=== PATIENT | female | born 1960 | race African-American/Black ===

== ENCOUNTER 2016-06-06 00:03 | Inpatient (IN) | payer MEDICARE, MEDICAID ==
[~2016-06-06] VITALS: Ht 154.9 cm; Wt 87.1 kg
[~2016-06-06 00:03] MED LIST: AMLODIPINE BESY10 MG ORAL; ASPIR 8181 MG ORAL; BENAZEPRIL HCL40 MG ORAL; CIPROFLOXACIN500 M2 ORAL; COLACE100 MG ORAL; DIABETA5 MG ORAL; DYAZIDE1 CAP ORAL; FUROSEMIDE20 M1 ORAL; GLIMEPIRIDE4 MG ORAL; GLYXAMBI 25 MG1 EACH PO; HYDROCHLOROTHIA25 MG ORAL; IBUPROFEN200 MG ORAL; KEFLEX500 MG ORAL; LANTUS SOL100 UNIT/1 SUBQ; LIPITOR80 MG ORAL; METFORMIN HCL850 M1 ORAL; NITROFURANTOIN100 M2 ORAL; NORMODYNE200 MG ORAL; NOVOLIN 70/305 UNIT1 SUBQ; PERCOCET 5-3251 EACH ORAL; ZOFRAN ODT4 MG ORAL; jardiance PO
[2016-06-06] MEDS ORDERED: Ketorolac 30mg Inj IV ONE (00:30)
[2016-06-06] MEDS ORDERED: Aspirin Baby 81mg ORAL ONE (00:30)
--- NOTE | 2016-06-06 00:34 | Emergency Room Report ---
History of Present Illness General Chief Complaint: Chest Pain Source: Patient Present Illness HPI Is a 55-year-old female with history of diabetes and hypertension. Also history esophagitis. She presents with multiple complaints. She complaining of dizziness and lightheadedness for the whole day. Also with coughing congestion. Now with chest pain for last few hours. Denies any fever or chills. Pain is centrally located. No radiation. /10. No exertional component. Also with bilateral lower extremity burning sensation. Nothing made it better nothing made it worse. Allergies: Coded Allergies: MORPHINE (Verified Allergy, Unknown, 06/12/15) Patient History Past Medical History: see triage record, old chart reviewed, DM, HTN Past Surgical History: other Pertinent Family History: none Social History: Denies: smoking Now: No Immunizations: other Reviewed Nursing Documentation: PMH: Agreed, PSxH: Agreed Nursing Documentation-PMH Hx Cardiac Problems: Yes Hx Hypertension: Yes Hx Diabetes: Yes - type 2 Hx Cancer: Yes - BREAST Hx Gastrointestinal Problems: No Hx Neurological Problems: No Review of Systems Eye: Denies: blurred vision, eye pain ENT: Denies: ear pain, nose congestion, throat swelling Respiratory: Reports: cough, Denies: shortness of breath Cardiovascular: Reports: chest pain, Denies: palpitations Gastrointestinal: Denies: abdominal pain, diarrhea, nausea, vomiting Musculoskeletal: Denies: back pain, joint pain Skin: Denies: rash Neurological: Denies: headache, numbness Endocrine: Denies: increased thirst, increased urine Hematologic/Lymphatic: Denies: easy bruising All Other Systems: negative except mentioned in HPI Physical Exam Vital Signs Date Time Temp Pulse Resp B/P Pulse Ox O2 Delivery O2 Flow Rate FiO2 06/06/16 00:21 97.9 112 23 131/76 100 Room Air vitals with tachycardia Sp02 EP Interpretation: reviewed, normal General Appearance: well appearing, no apparent distress, alert Head: normocephalic, atraumatic Eyes: bilateral eye EOMI, bilateral eye PERRL ENT: hearing grossly normal, normal pharynx Neck: full range of motion, supple, no meningismus Respiratory: chest non-tender, lungs clear, normal breath sounds Cardiovascular #1: regular rate, rhythm, no murmur Gastrointestinal: normal bowel sounds, non tender, no mass, no organomegaly, no bruit, non-distended Musculoskeletal: back normal, gait/station normal, normal range of motion Neurologic: alert, oriented x3 Psychiatric: anxious Skin: warm/dry Medical Decision Making Diagnostic Impression: Primary Impression: Chest pain Qualified Codes: R07.9 - Chest pain, unspecified Additional Impressions: ACS (acute coronary syndrome) Dizziness Peripheral neuropathy Obesity (BMI 30-39.9) Acute renal insufficiency ER Course Patient presents with atypical chest pain. She has multiple risk factors for ACS. First set of troponin negative. Will admit for serial EKG and rule out. No evidence of PE, dissection to name a few. Her dizziness he anxiety related could be viral illness. No evidence of TIA or CVA. No evidence of neoplastic process. Lab Results Impression Labs with abnormal creatinine. EKG Diagnostic Results Rate: normal, tachycardiac Rhythm: NSR ST Segments: no acute changes Rhythm Strip Diag. Results EP Interpretation: yes Rate: 98 Rhythm: NSR, no PVC's, no ectopy Chest X-Ray Diagnostic Results EP Interpretation: Yes Findings: no consolidation, no effusion, no pneumothorax, no acute cardiopulmonary disease Number of Views: 1 CT/MRI/US Diagnostic Results CT/MRI/US Diagnostic Results : Imaging Test Ordered: ct head Impression neg per radiologist. Last Vital Signs Date Time Temp Pulse Resp B/P Pulse Ox O2 Delivery O2 Flow Rate FiO2 06/06/16 00:21 97.9 112 23 131/76 100 Room Air Status: improved Disposition: ADMITTED INPATIENT Condition: Serious BRIANA CRYSTAL M.D. Jun 06, 2016 00:34
[2016-06-06 00:51] LABS: APPEARANCE,URINE CLEAR; BASOPHILS % (AUTO) 2.1 % (0.0-2.0); EOSINOPHILS % (AUTO) 0.3 % (0.0-3.0); KETONES,URINE NEGATIVE (NEGATIVE); LEUKOCYTE ESTERASE ,URINE NEGATIVE (NEGATIVE); LYMPHOCYTES % (AUTO) 25.7 % (20.0-45.0); MEAN CORPUSCULAR HEMOGLOBIN 33.4 PG (27.0-31.0); MEAN CORPUSCULAR HGB CONC 36.1 G/DL (32.0-36.0); MEAN CORPUSCULAR VOLUME 92 FL (80-99); MEAN PLATELET VOLUME 8.3 FL (6.5-10.1); MONOCYTES % (AUTO) 6.4 % (1.0-10.0); NEUTROPHILS % (AUTO) 65.5 % (45.0-75.0); NITRITE,URINE NEGATIVE (NEGATIVE); PH,URINE 6.5 (4.5-8.0); PLATELET COUNT 221 K/UL (150-450); RED BLOOD COUNT 4.55 M/UL (4.20-5.40); RED CELL DISTRIBUTION WIDTH 11.7 % (11.6-14.8); UROBILINOGEN,URINE NORMAL MG/DL (0.0-1.0)
[2016-06-06 00:54] LABS: PROTEIN,URINE NEGATIVE (NEGATIVE)
[2016-06-06 01:07] LABS: TROPONIN I < 0.30 ng/mL (<=0.30)
[2016-06-06 01:10] LABS: ALBUMIN/GLOBULIN RATIO 1.8 (1.0-2.7); CREATININE 1.6 mg/dL (0.5-0.9); GLOMERULAR FILTRATION RATE 40.4 mL/min (>60); POTASSIUM 3.6 mEQ/L (3.4-4.9); TOTAL PROTEIN 7.9 g/dL (6.6-8.7)
[2016-06-06 01:20] LABS: CKMB 1.8 ng/mL (< 3.8)
[2016-06-06] MEDS ORDERED: AMLODIPINE BESY10 MG ORAL (01:27)
[2016-06-06] MEDS ORDERED: D3 DOTS2000 UNI1 PO (01:27)
[2016-06-06] MEDS ORDERED: FOLIC ACID1 MG ORAL (01:27)
[2016-06-06] MEDS ORDERED: FOLBIC RF TABL1 EACH PO (01:27)
[2016-06-06 02:25] VITALS: BP 105/58
[2016-06-06] MEDS ORDERED: AMARYL4 MG ORAL (03:25)
[2016-06-06] MEDS ORDERED: VITAMIN D400 INTLU ORAL (03:27)
[2016-06-06] MEDS ORDERED: TROKENDI XR100 MG PO (03:27)
[2016-06-06] MEDS ORDERED: FOLIC ACID0.4 MG ORAL (03:27)
[2016-06-06] MEDS ORDERED: B-121000 MCG PO (03:28)
[2016-06-06 04:00] VITALS: BP 130/90
[2016-06-06] MEDS ORDERED: Nitroglycerin Subl 0.4mg tab (Bottle Of 25) SL PRN (05:45)
[2016-06-06] MEDS: Heparin 5000 units/ml inj SUBQ SCH ×3 (06:30→21:53)
[2016-06-06] MEDS: NovoLOG Insulin Flexpen SUBQ SCH ×4 (06:31→21:51)
[2016-06-06] MEDS ORDERED: Norco 5mg/325mg tab ORAL PRN (06:45)
[2016-06-06 08:00] VITALS: BP 135/72
[2016-06-06] MEDS ORDERED: Triamterene/Hctz 37.5/25 cap ORAL SCH (09:00)
[2016-06-06 09:16] LABS: TROPONIN I < 0.30 ng/mL (<=0.30)
--- NOTE | 2016-06-06 10:23 | General Progress Note ---
Progress Note Progress Note [id number] full note dictated JANIS LIN Jun 06, 2016 10:23
[2016-06-06] MEDS: TROKENDI ORAL SCH (10:29)
[2016-06-06] MEDS: Aspirin Baby 81mg ORAL SCH (10:29)
[2016-06-06] MEDS: JARDIANCE 25 MG ORAL SCH (10:29)
[2016-06-06] MEDS: Glimepiride 4mg tab ORAL SCH ×2 (11:26→19:27)
[2016-06-06 12:00] VITALS: BP 128/72
--- NOTE | 2016-06-06 12:49 | Diagnostic Imaging Report ---
Indication: DIZZY Technique: Continuous helical CT scanning of the head was performed without intravenous contrast material. Axial and coronal 5 mm sections were generated. Radiation dose was minimized using automated exposure control Dose: Total Dose Length Product - DLP [address] Dose Index - CTDIvol(s) 70.38 mGy. Comparison: None Findings: The ventricular system is normal in size and configuration. There is no shift of midline structures. No abnormal extra-axial fluid collections are noted. There is no evidence of intracerebral bleeding. No other abnormal high or low density areas are noted within the brain. Impression: Normal CT scan of the head without contrast material. This agrees with the preliminary interpretation provided overnight by [facility] telerad[facility] service. The CT scanner at [facility] is accredited by the [employer] and the scans are performed using protocols designed to limit radiation exposure to as low as reasonably achievable to attain images of sufficient resolution adequate for diagnostic evaluation.
[2016-06-06 16:00] VITALS: BP 152/62
--- NOTE | 2016-06-06 17:09 | History & Physical ---
History and Physical History & Physicial Dictated for Int Med-Dr Resendiz no. [id number]. JOHANNY IYER Jun 06, 2016 17:09
[2016-06-06 17:25] LABS: TROPONIN I < 0.30 ng/mL (<=0.30)
--- NOTE | 2016-06-06 17:31 | Consultation ---
History of Present Illness General Date patient seen: Jun 06, 2016 Chief Complaint: chest pain and dyspnea Referring physician: Dr. Ayala Reason for Consultation: dyspnea Present Illness HPI s a 55-year-old female with history of diabetes and hypertension presenting to [facility] ER with c/o chest pain and dyspnea. The patients hospitalist asked me to consult on the case to evaluate the patients respiratory status. At this time preliminary CXR does not reveal an acute infiltrate and or effusion, the exam may be limiting if the infiltration is in an early stage secondary to dehydration. The patient also has a history esophagitis. She presents with multiple complaints. She complaining of dizziness and lightheadedness for the whole day aswell. Also with coughing congestion. Now with chest pain for last few hours. Denies any fever or chills. Pain is centrally located. No radiation. 10/28. No exertional component. Also with bilateral lower extremity burning sensation. . Allergies: Coded Allergies: MORPHINE (Verified Allergy, Unknown, 06/12/15) Medication History Scheduled Amlodipine Besylate* (Amlodipine Besylate*), 10 MG ORAL DAILY, (Reported) Cyanocobalamin (Vitamin B-12) (B-12), 1,000 MCG PO DAILY, (Reported) Folic Acid (Folic Acid), 0.4 MG ORAL DAILY, (Reported) Glimepiride* (Amaryl*), 4 MG ORAL BID, (Reported) Hydrochlorothiazide* (Hydrochlorothiazide*), 25 MG ORAL DAILY, (Reported) Metformin Hcl* (Metformin Hcl*), 850 MG ORAL BID, (Reported) Topiramate (Trokendi Xr), 100 MG PO DAILY, (Reported) Triamterene/Hctz (Triamterene-Hctz 37.5-25 mg Cp), 1 CAP ORAL DAILY, (Reported) Vitamin D (Vitamin D3), 5,000 UNITS ORAL ONCE A WEEK, (Reported) [jardiance], 25 MG PO DAILY, (Reported) Miscellaneous Medications Cholecalciferol (Vitamin D3) (D3 Dots), 5,000 UNIT PO, (Reported) Patient History Healthcare decision maker pt alert and oriented Resuscitation status Full Code Advanced Directive on File Past Medical/Surgical History Past Medical/Surgical History: (1) UTI (urinary tract infection) (2) Renal stone (3) UTI (urinary tract infection) (4) Back pain (5) Low back pain (6) HTN (hypertension) (7) ACS (acute coronary syndrome) (8) Diabetes mellitus Review of Systems Constitutional: Reports: malaise, weakness Cardiovascular: Reports: chest pain, palpitations Neurological: Reports: dizziness Physical Exam General Appearance: no apparent distress Lines, tubes and drains: peripheral HEENT: normocephalic, atraumatic, anicteric Neck: non-tender, normal alignment, supple Respiratory/Chest: chest wall non-tender, decreased breath sounds Cardiovascular/Chest: normal peripheral pulses, normal rate, regular rhythm Abdomen: normal bowel sounds, non tender, soft Genitourinary/Rectal: normal genital exam, normal rectal exam Extremities: normal range of motion, non-tender, normal inspection Skin Exam: normal pigmentation 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 normal, no motor/sensory deficits Last 24 Hour Vital Signs Date Time Temp Pulse Resp B/P Pulse Ox O2 Delivery O2 Flow Rate FiO2 06/06/16 16:00 97.8 78 21 152/62 99 Room Air 06/06/16 12:00 97.0 82 17 128/72 97 Room Air 83 06/06/16 12:00 76 06/06/16 10:30 133 06/06/16 10:29 86 135/72 06/06/16 08:00 96.9 86 17 135/72 98 Room Air 86 06/06/16 08:00 87 06/06/16 04:00 91 06/06/16 04:00 97.5 93 20 130/90 97 Room Air 06/06/16 02:30 97.9 84 21 105/58 96 Room Air 06/06/16 02:25 97.9 84 21 105/58 96 Room Air 06/06/16 00:30 100 21 Room Air 06/06/16 00:21 97.9 112 23 131/76 100 Room Air Intake and Output 06/05/16 06/06/16 19:00 07:00 # Voids 1 Laboratory Tests Test 06/06/16 00:33 06/06/16 08:30 06/06/16 16:38 White Blood Count 8.0 K/UL (4.8-10.8) Red Blood Count 4.55 M/UL (4.20-5.40) Hemoglobin 15.2 G/DL (12.0-16.0) Hematocrit 42.1 % (37.0-47.0) Mean Corpuscular Volume 92 FL (80-99) Mean Corpuscular Hemoglobin 33.4 PG (27.0-31.0) H Mean Corpuscular Hemoglobin Concent 36.1 G/DL (32.0-36.0) H Red Cell Distribution Width 11.7 % (11.6-14.8) Platelet Count 221 K/UL (150-450) Mean Platelet Volume 8.3 FL (6.5-10.1) Neutrophils (%) (Auto) 65.5 % (45.0-75.0) Lymphocytes (%) (Auto) 25.7 % (20.0-45.0) Monocytes (%) (Auto) 6.4 % (1.0-10.0) Eosinophils (%) (Auto) 0.3 % (0.0-3.0) Basophils (%) (Auto) 2.1 % (0.0-2.0) H Urine Color Pale yellow Urine Appearance Clear Urine pH 6.5 (4.5-8.0) Urine Specific [place] 1.005 (1.005-1.035) Urine Protein Negative (NEGATIVE) Urine Glucose (UA) 4+ (NEGATIVE) H Urine Ketones Negative (NEGATIVE) Urine Occult Blood Negative (NEGATIVE) Urine Nitrite Negative (NEGATIVE) Urine Bilirubin Negative (NEGATIVE) Urine Urobilinogen Normal MG/DL (0.0-1.0) Urine Leukocyte Esterase Negative (NEGATIVE) Sodium Level 132 mEQ/L (135-145) L Potassium Level 3.6 mEQ/L (3.4-4.9) Chloride Level 91 mEQ/L (98-107) L Carbon Dioxide Level 18 mEQ/L (20-30) L Anion Gap 23 (5-15) H Blood Urea Nitrogen 25 mg/dL (7-23) H Creatinine 1.6 mg/dL (0.5-0.9) H Estimat Glomerular Filtration Rate 40.4 mL/min (>60) Glucose Level 145 mg/dL (74-106) H Calcium Level 10.0 mg/dL (8.6-10.2) Total Bilirubin 0.3 mg/dL (0.0-1.2) Aspartate Amino Transf (AST/SGOT) 21 U/L (5-40) Alanine Aminotransferase (ALT/SGPT) 19 U/L (3-33) Alkaline Phosphatase 86 U/L (35-104) Total Creatine Kinase 99 U/L (26-140) Creatine Kinase MB 1.8 ng/mL (< 3.8) Creatine Kinase MB Relative Index 1.8 Troponin I < 0.30 ng/mL (<=0.30) < 0.30 ng/mL (<=0.30) < 0.30 ng/mL (<=0.30) Pro-B-Type Natriuretic Peptide 29 pg/mL (0-125) Total Protein 7.9 g/dL (6.6-8.7) Albumin 5.1 g/dL (3.5-5.2) Globulin 2.8 g/dL Albumin/Globulin Ratio 1.8 (1.0-2.7) Height (Feet): 5 Height (Inches): 1.00 Weight (Pounds): 192 Medications Current Medications Medications (Trade) Dose Ordered Sig/Flynn Route PRN Reason Start Time Stop Time Status Last Admin Dose Admin Acetaminophen (Tylenol) 650 mg Q6H PRN ORAL Mild Pain/Temp > 100.5 06/06/16 05:45 07/06/16 05:44 Acetaminophen/ Hydrocodone Bitart ([place] 5/325) 1 tab Q6H PRN ORAL For Pain 06/06/16 06:45 06/13/16 06:44 Amlodipine Besylate (Norvasc) 10 mg DAILY ORAL 06/06/16 09:00 07/06/16 08:59 06/06/16 10:29 Aspirin (ASA) 81 mg DAILY ORAL 06/06/16 09:00 07/06/16 08:59 06/06/16 10:29 Dextrose (Dextrose 50%) STAT PRN IV Hypoglycemia 06/06/16 05:45 07/06/16 05:44 Folic Acid (Folate) 1 mg DAILY ORAL 06/06/16 09:00 07/06/16 08:59 06/06/16 10:29 Glimepiride (Amaryl) 4 mg BID ORAL 06/06/16 09:00 07/06/16 08:59 06/06/16 11:26 Heparin Sodium (Porcine) (Heparin 5000 units/ml) 5,000 units EVERY 8 HOURS SUBQ 06/06/16 06:00 07/06/16 05:59 06/06/16 14:52 Insulin Aspart (NovoLOG) BEFORE MEALS AND HS SUBQ 06/06/16 06:30 07/06/16 06:29 06/06/16 13:03 Nitroglycerin (Ntg) 0.4 mg Q5M PRN SL Prn Chest Pain 06/06/16 05:45 07/06/16 05:44 Patient Own Medication (Patient's Own Med) 1 ea DAILY ORAL 06/06/16 09:00 07/06/16 08:59 06/06/16 10:29 Patient Own Medication (Patient's Own Med) 1 ea DAILY ORAL 06/06/16 09:00 07/06/16 08:59 06/06/16 10:29 Assessment/Plan Problem List: (1) ACS (acute coronary syndrome) ICD Codes: I20.0 - Unstable angina SNOMED: 367315100 (2) HTN (hypertension) ICD Codes: I10 - Essential (primary) hypertension SNOMED: 80446117 (3) Diabetes mellitus ICD Codes: E11.9 - Type 2 diabetes mellitus without complications SNOMED: 48741321 Qualifiers: (4) Obesity (BMI 30-39.9) ICD Codes: E66.9 - Obesity, unspecified SNOMED: 137434399, 675974236 (5) Peripheral neuropathy ICD Codes: G62.9 - Polyneuropathy, unspecified SNOMED: 713965317, 382517606 Qualifiers: Qualified Codes: G63 - Polyneuropathy in diseases classified elsewhere (6) Dizziness ICD Codes: R42 - Dizziness and giddiness SNOMED: 833179251, 032635361 Status: stable, progressing Assessment/Plan serial ekg, troponin echo cardiology evaluation stress testing EASTON LAWSON Jun 06, 2016 17:31
--- NOTE | 2016-06-06 17:40 | Diagnostic Imaging Report ---
Indication: Chest pain Technique: One view of the chest Comparison: 07/27/2014 Findings: Lungs and pleural spaces are clear. Heart size is normal. There are left axillary surgical clips. Findings are unchanged Impression: No acute process
--- NOTE | 2016-06-06 19:03 | Cardiology Progress Note ---
Assessment/Plan Assessment/Plan The patient is seen and examined, full consult note is dictated. Objective Last 24 Hour Vital Signs Date Time Temp Pulse Resp B/P Pulse Ox O2 Delivery O2 Flow Rate FiO2 06/06/16 16:00 97.8 78 21 152/62 99 Room Air 06/06/16 12:00 97.0 82 17 128/72 97 Room Air 83 06/06/16 12:00 76 06/06/16 10:30 133 06/06/16 10:29 86 135/72 06/06/16 08:00 96.9 86 17 135/72 98 Room Air 86 06/06/16 08:00 87 06/06/16 04:00 91 06/06/16 04:00 97.5 93 20 130/90 97 Room Air 06/06/16 02:30 97.9 84 21 105/58 96 Room Air 06/06/16 02:25 97.9 84 21 105/58 96 Room Air 06/06/16 00:30 100 21 Room Air 06/06/16 00:21 97.9 112 23 131/76 100 Room Air Intake and Output 06/05/16 06/06/16 19:00 07:00 # Voids 1 Laboratory Tests Test 06/06/16 00:33 06/06/16 08:30 06/06/16 16:38 White Blood Count 8.0 K/UL (4.8-10.8) Red Blood Count 4.55 M/UL (4.20-5.40) Hemoglobin 15.2 G/DL (12.0-16.0) Hematocrit 42.1 % (37.0-47.0) Mean Corpuscular Volume 92 FL (80-99) Mean Corpuscular Hemoglobin 33.4 PG (27.0-31.0) H Mean Corpuscular Hemoglobin Concent 36.1 G/DL (32.0-36.0) H Red Cell Distribution Width 11.7 % (11.6-14.8) Platelet Count 221 K/UL (150-450) Mean Platelet Volume 8.3 FL (6.5-10.1) Neutrophils (%) (Auto) 65.5 % (45.0-75.0) Lymphocytes (%) (Auto) 25.7 % (20.0-45.0) Monocytes (%) (Auto) 6.4 % (1.0-10.0) Eosinophils (%) (Auto) 0.3 % (0.0-3.0) Basophils (%) (Auto) 2.1 % (0.0-2.0) H Urine Color Pale yellow Urine Appearance Clear Urine pH 6.5 (4.5-8.0) Urine Specific [place] 1.005 (1.005-1.035) Urine Protein Negative (NEGATIVE) Urine Glucose (UA) 4+ (NEGATIVE) H Urine Ketones Negative (NEGATIVE) Urine Occult Blood Negative (NEGATIVE) Urine Nitrite Negative (NEGATIVE) Urine Bilirubin Negative (NEGATIVE) Urine Urobilinogen Normal MG/DL (0.0-1.0) Urine Leukocyte Esterase Negative (NEGATIVE) Sodium Level 132 mEQ/L (135-145) L Potassium Level 3.6 mEQ/L (3.4-4.9) Chloride Level 91 mEQ/L (98-107) L Carbon Dioxide Level 18 mEQ/L (20-30) L Anion Gap 23 (5-15) H Blood Urea Nitrogen 25 mg/dL (7-23) H Creatinine 1.6 mg/dL (0.5-0.9) H Estimat Glomerular Filtration Rate 40.4 mL/min (>60) Glucose Level 145 mg/dL (74-106) H Calcium Level 10.0 mg/dL (8.6-10.2) Total Bilirubin 0.3 mg/dL (0.0-1.2) Aspartate Amino Transf (AST/SGOT) 21 U/L (5-40) Alanine Aminotransferase (ALT/SGPT) 19 U/L (3-33) Alkaline Phosphatase 86 U/L (35-104) Total Creatine Kinase 99 U/L (26-140) Creatine Kinase MB 1.8 ng/mL (< 3.8) Creatine Kinase MB Relative Index 1.8 Troponin I < 0.30 ng/mL (<=0.30) < 0.30 ng/mL (<=0.30) < 0.30 ng/mL (<=0.30) Pro-B-Type Natriuretic Peptide 29 pg/mL (0-125) Total Protein 7.9 g/dL (6.6-8.7) Albumin 5.1 g/dL (3.5-5.2) Globulin 2.8 g/dL Albumin/Globulin Ratio 1.8 (1.0-2.7) LILY RUDD Jun 06, 2016 19:03
--- NOTE | 2016-06-06 19:19 | Consultation ---
DATE OF CONSULTATION: 06/06/2016 NEPHROLOGY CONSULTATION REFERRING PHYSICIAN: Wei Resendiz M.D. REASON FOR CONSULTATION: Acute renal failure, hyponatremia and electrolyte imbalance. HISTORY OF PRESENT ILLNESS: The patient is a pleasant 65-year-old female presented unfortunately with past medical history of diabetes, hypertension, obesity and history of esophagitis, who presented to the emergency room complaining of multiple problem. Her problem started last night before she goes to bed. She started having some severe dizziness and vertigo and lightheadedness. She started to have some ringing sensation in her left ear and later she started having chest pain. She describes her pain 7/10, was not radiating, was associated with shortness of breath and nausea. She consequently came to emergency room. In the ER, the patient was diagnosed with acute renal failure and acute coronary syndrome, was admitted in the hospital. I was called for management of renal disease and electrolyte imbalance. ALLERGIES: She is allergic to codeine. PAST MEDICAL HISTORY: 1. Diabetes. 2. Hypertension. 3. Dyslipidemia. 4. Morbid obesity. 5. History of GI bleeding in the past. MEDICATIONS: 1. Norvasc 10 mg p.o. daily. 2. Vitamin D. 3. Cyanocobalamin 1000 mg by mouth daily. 4. Folic acid one p.o. daily. 5. Amaryl 4 mg p.o. daily. 6. Hydrochlorothiazide 25 mg p.o. daily. 7. Metformin 850 mg p.o. daily. 8. Topiramate 100 mg p.o. daily. 9. Vitamin B 400 mg daily. SOCIAL HISTORY: Quit smoking about a year ago. There is no history of alcohol or drug use. FAMILY HISTORY: She has a strong family history. Both her mother and father at the age of 50 from the heart disease, also her brother. She has another sister who is on dialysis. Noncontributory. REVIEW OF SYSTEMS: General: She complained of generalized weakness. Denies any fever, chills, or night sweats. Head And Neck: Denies any dysphagia, odynophagia, blurry vision, headache, or neck stiffness. Pulmonary: No current shortness of breath. She is still complaining of cough with no sputum. Cardiovascular: Complained of chest pain as mentioned in history of present illness. At this point, the patient is chest pain free. Gastrointestinal: Denied any nausea, vomiting, diarrhea, hematemesis, or hematochezia. Genitourinary: Denies any dysuria, frequency, or hematuria. Musculoskeletal: Denies generalized weakness or numbness. PHYSICAL EXAMINATION: VITAL SIGNS: The patient has temperature of 98.0 degrees, blood pressure 105/58, pulse rate of 84, and respiratory rate of 18. HEAD AND NECK: No JVP. No LAD. No thyromegaly. Extraocular movement intact. Pupils are reactive to light and accommodation. LUNGS: Clear to auscultation. CARDIAC: Regular rate and rhythm. S1 and S2. No murmur. No rub. ABDOMEN: Soft, nontender, and nondistended. No organomegaly. EXTREMITIES: Trace edema. No clubbing. No cyanosis. NEUROLOGIC: Cranial nerves II through XII within normal limits. Upper and lower extremities are grossly intact. LABORATORY AND DIAGNOSTIC DATA: The patient has sodium 132, potassium 3.6, 91 chloride, 18 bicarbonate, BUN of 25, creatinine of 1.6 and glucose of 145. Calcium of 10. AST of 21, ALT of 19 and alkaline phosphatase of 86. Albumin of 5.6. Total protein of 7.9. CBC revealed WBC count of 8, hemoglobin of 15, hematocrit of 42, and platelet count of 221,000. Urinalysis revealed specific gravity of 1.005, pH of 6.5, glucose 4+, no WBC and no RBC. ASSESSMENT: 1. Acute renal failure. The etiology of acute renal failure including acute tubular necrosis due to unstable hemodynamics versus prerenal azotemia and dehydration. The patient was on diuretic at home. 2. Hyponatremia, most likely as a result of hydrochlorothiazide at home. Also need to rule out diabetic nephropathy. 3. Acute coronary syndrome. 4. Uncontrolled diabetes. 5. Hypertension. 6. Strong family history of cardiovascular disease and kidney disease. PLAN: To check the random urine protein creatinine ratio to calculate the proteinuria. Check the urine eosinophils. Check the microalbumin. Ultrasound of the kidney. Start the patient on IV fluids and I would start the patient on normal saline at 70 mL/hour. I would avoid any NSAIDs or nephrotoxic. Replace electrolytes as needed. IV piggyback with normal saline. Again, I would like to thank, Dr. Resendiz, for allowing me to participate in the care of this patient. Callygriselda Reed M.D. DR: KELLY JOB#: [id number] CC:
[2016-06-06 20:00] VITALS: BP 122/63
--- NOTE | 2016-06-06 20:40 | History and Physical Report ---
DATE OF ADMISSION: 06/06/2016 CHIEF COMPLAINT: The patient is a 55 year female, who presents with a chief complaint of chest pain. HISTORY OF PRESENT ILLNESS: Began yesterday, 06/05/2016 around 9 p.m. The patient began to feel dizzy. The patient felt ringing in her ears. The patient called 911. The patient stated that her blood sugar was fine. EMS left her house. The patient then began to experience chest pressure. Chest pressure is substernal. It has been constant since last evening. The patient then presented to [facility]. The patient was admitted for chest pain to rule out acute coronary syndrome. PAST MEDICAL HISTORY: Significant for, 1. Type 2 diabetes. 2. Hypertension. 3. History of left breast cancer, status post lumpectomy, chemotherapy, and radiation therapy. 4. Chronic low back pain. PAST SURGICAL HISTORY: Significant for, 1. Total abdominal hysterectomy. 2. Left breast lumpectomy. CURRENT MEDICATIONS: 1. Norvasc 10 mg one tablet p.o. daily. 2. Vitamin D 2000 units daily. 3. Vitamin B12 1000 mcg daily. 4. Folic acid 0.4 mg one tablet p.o. daily. 5. Glimepiride 4 mg one tablet p.o. twice daily. 6. Hydrochlorothiazide 25 mg one tablet p.o. daily. 7. Metformin 850 mg one tablet p.o. twice daily. 8. Topamax 100 mg one tablet p.o. daily. 9. Triamterene/hydrochlorothiazide 37.5/25 one tablet p.o. daily. 10. of an unknown dose daily. ALLERGIES: To morphine. SOCIAL HISTORY: The patient is single and is disabled. The patient is from her . The patient denies tobacco or alcohol use. FAMILY HISTORY: Significant for diabetes in the patient's mother and father. Significant for coronary artery disease in the patient's parents and siblings, all of whom in their 50s. REVIEW OF SYSTEMS: Constitutional: The patient denies weight loss or weight gain. The patient denies fevers or chills. HEENT: The patient denies ear or throat pain. Cardiovascular: The patient complains of chest pain as above. The patient denies palpitations. Chest: The patient denies wheeze or shortness of breath. Abdomen: The patient denies nausea, vomiting, diarrhea, or constipation. Genitourinary: The patient denies dysuria or increased frequency of urination. Neuromuscular: The patient denies seizures or generalized weakness. PHYSICAL EXAM: VITAL SIGNS: Temperature 97.5 degrees, respirations 20, pulse 91 to 93, blood pressure 130/90. GENERAL: The patient is well-developed and well-nourished obese female, in no apparent distress. HEENT: Eyes, pupils are equal and responsive to light and accommodation. Extraocular movements are intact. NECK: Supple without lymphadenopathy. CHEST: Lungs are clear to auscultation bilaterally without wheezes or rales. CARDIOVASCULAR: Regular rhythm and rate. S1 and S2 are normal without murmurs, rubs, or gallops. ABDOMEN: Soft, nontender, and nondistended. Positive bowel sounds. No evidence of hepatosplenomegaly. Currently, no rebound or guarding noted. EXTREMITIES: Negative for clubbing, cyanosis, or edema. RECTAL: Refused. GENITAL: Refused. NEUROLOGICAL: Cranial nerves II through XII are grossly intact without focal deficits. Motor strength is 5/5 bilaterally. Deep tendon reflexes are 2+ plantar. LABORATORY AND DIAGNOSTIC STUDIES: WBC 8.2, hemoglobin 15.2, hematocrit 42.1, and platelets 221,000. Sodium 133, potassium 3.6, chloride 91, CO2 18, BUN 25, creatinine 1.6, and glucose 145. Troponin is less than 0.3. EKG demonstrated normal sinus rhythm with nonspecific ST changes. Otherwise, no Q-waves noted. ASSESSMENT: This is a 55-year-old female. 1. Chest pain. 2. Diabetes type 2. 3. Hypertension. 4. History of left breast cancer. 5. Chronic low back pain. TREATMENT: 1. Chest pain. A Cardiology consultation is pending. A Cardiolite stress test is pending. We will follow recommendations of Cardiology. Serial troponin levels will be run. 2. Diabetes type 2. Continue glimepiride and metformin as above. A NovoLog sliding scale has been instituted. 3. Hypertension. Continue amlodipine as above. 4. History of left breast cancer. The patient is status post lumpectomy, chemotherapy, and radiation therapy. 5. Chronic low back pain. Steven Ayala M.D. DR: NIKKI JOB#: [id number] CC:
--- NOTE | 2016-06-06 22:49 | Consultation ---
DATE OF CONSULTATION: 06/06/2016 CARDIOLOGY CONSULTATION CONSULTING PHYSICIAN: Gera Lion M.D. REFERRING PHYSICIAN: Wei Resendiz M.D. REASON FOR CONSULTATION: Management of chest pain. HISTORY OF PRESENT ILLNESS: The patient is a very pleasant 55-year-old female, who presents to the hospital with complaints of dizziness and left precordial chest pain. Apparently, the patient was at home when she started to have an acute onset of chest pain described as pressure-like, nonradiating, , and the intensity of 7/10 with associated mild shortness of breath and mild nausea. She called 911 and was brought to the emergency department where the blood pressure was 131/76 and heart rate was 112. She denies any prior history of coronary artery disease, congestive heart failure, or cardiac arrhythmias. However, she has risk factors of diabetes mellitus and hypertension from coronary artery disease standpoint. She denies any change in exercise tolerance in the past two weeks. PAST MEDICAL HISTORY: Diabetes mellitus, hypertension, history of diabetic neuropathy, history of left breast cancer, status post lumpectomy, and chemotherapy. PAST SURGICAL HISTORY: Lumpectomy and hysterectomy. MEDICATIONS: List of medications at home, amlodipine 10 mg p.o. daily, vitamin D3 2000 units one tablet daily, vitamin B12 1000 mcg p.o. daily, folic acid 0.4 mg daily, Amaryl 4 mg p.o. twice daily, hydrochlorothiazide 25 mg p.o. daily, metformin 850 mg p.o. twice daily, topiramate 100 mg p.o. daily, triamterene hydrochlorothiazide 37.5/25 one tablet daily, and 25 mg p.o. daily. SOCIAL HISTORY: Denies any smoking at this time. She has smoked in the past, cessation is about a year. Denies any alcohol or illicit drug use. FAMILY HISTORY: Both mom and dad had coronary artery disease and myocardial infarction in 50s. REVIEW OF SYSTEMS: HEENT: Denies any headache, but she had dizziness and lightheadedness. Constitutional: She is complaining of generalized weakness. No fever, chills, or night sweats. Cardiovascular: Chest pain as mentioned above. Some mild shortness of breath. Denies any PND, orthopnea, leg swelling, palpitations, or syncope. Pulmonary: Denies any cough, hemoptysis, or wheezing. Gastrointestinal: She has some nausea, but no diarrhea, constipation, abdominal pain, or GI bleed. Genitourinary: Denies any hematuria, dysuria, or incontinence. Neurology: Denies any motor dysfunction, sensory deficit, or altered speech. PHYSICAL EXAMINATION: VITAL SIGNS: Blood pressure was 152/62, pulse of 78, respirations 21, temperature 97.8 degrees Fahrenheit, and O2 saturation 99% on room air. GENERAL: The patient is a very pleasant 55-year-old female in no apparent respiratory distress. Alert and oriented x4. HEENT: Atraumatic and normocephalic. Anicteric. Pupils are equal, round, and reactive to light and accommodation. Extraocular muscles intact. NECK: JVP is less than 5 cm. No carotid bruits. Carotid upstrokes 2+ bilaterally. CVS: Normal S1 and S2. Regular rate and rhythm. No murmurs, gallops, or rubs. PMI is at fourth intercostal space at the midclavicular line. LUNGS: Clear to auscultation bilaterally. ABDOMEN: Soft, nontender, and nondistended. No hepatosplenomegaly. Positive bowel sounds. EXTREMITIES: No evidence of edema, clubbing, or cyanosis. LABORATORY AND DIAGNOSTIC FINDINGS: WBC is 8.0, hemoglobin 13.2, hematocrit of 42.1, and platelet count 221,000. Sodium was 132, potassium 3.6, chloride was 91, carbon dioxide 18, BUN of 25, and creatinine 1.6, glucose is 145, calcium is 10.0, troponin I x3 is negative. Chest x-ray showed no acute cardiopulmonary disease. CT of head showed normal CT of head without intracranial bleed or shift. The 2D echocardiography shows normal LV systolic function with LVEF of about 50% to 55% and grade 1 LV diastolic dysfunction. Normal right ventricular systolic pressure measured at 11 mmHg. A 12-lead electrocardiogram shows sinus tachycardia at a rate of [address] and T-wave abnormalities. No acute ischemic changes. ASSESSMENT AND PLAN: The patient is a very pleasant 55-year-old female, seen in Cardiology consultation at the request of Dr. Resendiz. 1. Chest pain, probably atypical. The patient's echocardiography shows no evidence of wall motion abnormalities. A 12-lead electrocardiogram is not revealing any criteria for ischemia. Acute myocardial infarction is ruled out. The patient do not require any further cardiac workup at this point. 2. Renal failure. I would consider placing a hold on hydrochlorothiazide in view of hyponatremia, metformin also needs to be withheld in view of high creatinine. Nephrology consultation will also be required to adjust the patient's medication dose and not quite sure whether the patient . Hydration will be attempted to see if there is any component of acute kidney injury. 3. Diabetes mellitus. I will consider aspirin and statin to her regimen. The patient might benefit from UMESH inhibitors in a long run in view of associated kidney disease. 4. History of hypertension. Blood pressure is currently stage 1. We will continue amlodipine. We may have to add UMESH or ARB if the acute kidney injury is ruled out. I would like to thank, Dr. Resendiz, for the courtesy of this consultation. Gera Lion M.D. DR: JOSUE JOB#: [id number] CC:
[2016-06-07] VITALS: BP 133/62
[2016-06-07 04:00] VITALS: BP 131/62
[2016-06-07 06:45] LABS: BASOPHILS % (AUTO) 1.4 % (0.0-2.0); EOSINOPHILS % (AUTO) 0.5 % (0.0-3.0); LYMPHOCYTES % (AUTO) 41.5 % (20.0-45.0); MEAN CORPUSCULAR HEMOGLOBIN 31.9 PG (27.0-31.0); MEAN CORPUSCULAR HGB CONC 34.8 G/DL (32.0-36.0); MEAN CORPUSCULAR VOLUME 92 FL (80-99); MEAN PLATELET VOLUME 9.2 FL (6.5-10.1); MONOCYTES % (AUTO) 8.5 % (1.0-10.0); NEUTROPHILS % (AUTO) 48.1 % (45.0-75.0); PLATELET COUNT 173 K/UL (150-450); RED BLOOD COUNT 4.34 M/UL (4.20-5.40); RED CELL DISTRIBUTION WIDTH 11.8 % (11.6-14.8); WHITE BLOOD COUNT 4.3 K/UL (4.8-10.8)
[2016-06-07 06:53] LABS: TROPONIN I < 0.30 ng/mL (<=0.30)
[2016-06-07 06:54] LABS: CALCIUM 9.6 mg/dL (8.6-10.2); CHOLESTEROL/HDL RATIO 6.6 (3.3-4.4); CREATININE 1.4 mg/dL (0.5-0.9); GLOMERULAR FILTRATION RATE 47.1 mL/min (>60); MAGNESIUM 1.9 mg/dL (1.7-2.5); PHOSPHORUS 3.9 mg/dL (2.5-4.8); TOTAL PROTEIN 6.6 g/dL (6.6-8.7)
[2016-06-07] MEDS: Heparin 5000 units/ml inj SUBQ SCH ×3 (07:02→21:59)
[2016-06-07] MEDS: NovoLOG Insulin Flexpen SUBQ SCH ×4 (07:04→21:58)
[2016-06-07 08:00] VITALS: BP 120/72
[2016-06-07] MEDS: Aspirin Baby 81mg ORAL SCH (09:27)
[2016-06-07] MEDS: Glimepiride 4mg tab ORAL SCH ×2 (09:28→17:58)
[2016-06-07 10:32] LABS: CREATININE, RANDOM URINE 146.7 mg/dL
[2016-06-07] MEDS: TROKENDI ORAL SCH (10:33)
[2016-06-07] MEDS: JARDIANCE 25 MG ORAL SCH (10:33)
--- NOTE | 2016-06-07 10:53 | Diagnostic Imaging Report ---
Indication: Acute renal failure Technique: Grayscale and duplex images of the kidneys, retroperitoneum, and bladder were obtained. Comparison: Findings: Right kidney measures 10.7 cm in length. Left kidney measures 10.3 cm in length. Both kidneys demonstrate normal echogenicity. No hydronephrosis. Echogenic focus within the left renal sinus is consistent with renal calyceal calcification demonstrated on prior CT scan 12/10/2014. Normal inferior vena cava. Bladder is normal. Impression: Small nonobstructive left renal calyceal calcification, also previously described Otherwise unremarkable. No evidence of hydronephrosis.
[2016-06-07 12:00] VITALS: BP 122/80
--- NOTE | 2016-06-07 14:17 | Nephrology Progress Note ---
Assessment/Plan Assessment 1.ARF Improving 2.hyponatremia hypovolemic 3.HTN well controlled 4.DM 5ACS Plan PLAN to continue ivf monitoring renal function avoid NSAID Replace electrolyte as need it Subjective Constitutional: Reports: malaise, weakness HEENT: Reports: no symptoms Genitourinary: Reports: no symptoms Neurologic/Psychiatric: Reports: no symptoms Subjective alert and awake feeling better Objective Objective Last 24 Hour Vital Signs Date Time Temp Pulse Resp B/P Pulse Ox O2 Delivery O2 Flow Rate FiO2 06/07/16 12:00 97.4 87 18 122/80 98 89 06/07/16 09:28 90 125/72 06/07/16 08:00 97.0 90 18 120/72 98 Room Air 92 06/07/16 08:00 80 06/07/16 04:00 97.0 86 20 131/62 98 Room Air 0 06/07/16 04:00 88 06/07/16 00:00 98.0 58 20 133/62 98 Room Air 06/07/16 00:00 74 06/06/16 20:00 97.6 75 20 122/63 99 Room Air 06/06/16 20:00 70 06/06/16 16:00 97.8 78 21 152/62 99 Room Air Intake and Output 06/06/16 06/07/16 19:00 07:00 Intake Total 650 ml Output Total 1000 ml 1000 ml Balance -350 ml -1000 ml Intake Oral 650 ml Output Urine Total 1000 ml 1000 ml # Voids 4 Laboratory Tests 06/06/16 16:38: Troponin I < 0.30 06/07/16 05:10: Troponin I < 0.30, White Blood Count 4.3L, Red Blood Count 4.34, Hemoglobin 13.9 , Hematocrit 39.8, Mean Corpuscular Volume 92, Mean Corpuscular Hemoglobin 31.9H , Mean Corpuscular Hemoglobin Concent 34.8, Red Cell Distribution Width 11.8, Platelet Count 173, Mean Platelet Volume 9.2, Neutrophils (%) (Auto) 48.1, Lymphocytes (%) (Auto) 41.5, Monocytes (%) (Auto) 8.5, Eosinophils (%) (Auto) 0.5, Basophils (%) (Auto) 1.4, Sodium Level 137, Potassium Level 4.0, Chloride Level 98, Carbon Dioxide Level 18L, Anion Gap 21H, Blood Urea Nitrogen 21, Creatinine 1.4H, Estimat Glomerular Filtration Rate 47.1, Glucose Level 201H, Calcium Level 9.6, Phosphorus Level 3.9, Magnesium Level 1.9, Total Bilirubin 0.3, Aspartate Amino Transf (AST/SGOT) 22, Alanine Aminotransferase (ALT/SGPT) 19, Alkaline Phosphatase 79, Pro-B-Type Natriuretic Peptide 47, Total Protein 6.6, Albumin 4.4, Globulin 2.2, Albumin/Globulin Ratio 2.0, Triglycerides Level 390H, Cholesterol Level 223H, LDL Cholesterol 111H, HDL Cholesterol 34, Cholesterol/HDL Ratio 6.6H 06/07/16 05:20: Urine Eosinophils None seen, Urine Random Creatinine [Pending], Urine Random Microalbumin [Pending], Urine Random Total Protein 14, Urine Random Sodium 54, Urine Creatinine 146.7, Urine Microalbumin/Creatinine Ratio [Pending] Height (Feet): 5 Height (Inches): 1.00 Weight (Pounds): 192 Objective HEAD AND NECK: No JVP. No LAD. No thyromegaly. Extraocular movement intact. Pupils are reactive to light and accommodation. LUNGS: Clear to auscultation. CARDIAC: Regular rate and rhythm. S1 and S2. No murmur. No rub. ABDOMEN: Soft, nontender, and nondistended. No organomegaly. EXTREMITIES: Trace edema. No clubbing. No cyanosis. NEUROLOGIC: Cranial nerves II through XII within normal limits. Upper and lower extremities are grossly intact. JANIS LIN Jun 07, 2016 14:17
[2016-06-07] MEDS ORDERED: Adenosine Inj IVP ONE (14:45)
--- NOTE | 2016-06-07 15:07 | Cardiology Report ---
APPROVED REPORT EKG Measurement Heart [id number] Sinus tachycardia Nonspecific T wave abnormality Abnormal ECG
[2016-06-07 16:00] VITALS: BP 136/71
--- NOTE | 2016-06-07 16:49 | Pulmonology Progress Note ---
Assessment/Plan Problems: (1) ACS (acute coronary syndrome) (2) Acute renal insufficiency (3) Peripheral neuropathy (4) HTN (hypertension) (5) Diabetes mellitus (6) Obesity (BMI 30-39.9) Assessment/Plan f/u electrolytes stress test done, no results available renal function improving dc home if stress test negative. Subjective ROS Limited/Unobtainable: No Interval Events: feeling much better Allergies: Coded Allergies: MORPHINE (Verified Allergy, Unknown, 06/12/15) Objective Last 24 Hour Vital Signs Date Time Temp Pulse Resp B/P Pulse Ox O2 Delivery O2 Flow Rate FiO2 06/07/16 12:00 97.4 87 18 122/80 98 89 06/07/16 12:00 85 06/07/16 09:28 90 125/72 06/07/16 08:00 97.0 90 18 120/72 98 Room Air 92 06/07/16 08:00 80 06/07/16 04:00 97.0 86 20 131/62 98 Room Air 0 06/07/16 04:00 88 06/07/16 00:00 98.0 58 20 133/62 98 Room Air 06/07/16 00:00 74 06/06/16 20:00 97.6 75 20 122/63 99 Room Air 06/06/16 20:00 70 Intake and Output 06/06/16 06/07/16 19:00 07:00 Intake Total 650 ml Output Total 1000 ml 1000 ml Balance -350 ml -1000 ml Intake Oral 650 ml Output Urine Total 1000 ml 1000 ml # Voids 4 General Appearance: WD/WN HEENT: normocephalic, atraumatic Respiratory/Chest: chest wall non-tender, lungs clear Breasts: no masses Cardiovascular: normal peripheral pulses Abdomen: normal bowel sounds, soft, non tender Skin: no rash 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 Lymphatic: no neck adenopathy Laboratory Tests 06/07/16 05:10: White Blood Count 4.3L, Red Blood Count 4.34, Hemoglobin 13.9, Hematocrit 39.8, Mean Corpuscular Volume 92, Mean Corpuscular Hemoglobin 31.9H, Mean Corpuscular Hemoglobin Concent 34.8, Red Cell Distribution Width 11.8, Platelet Count 173, Mean Platelet Volume 9.2, Neutrophils (%) (Auto) 48.1, Lymphocytes (%) (Auto) 41.5, Monocytes (%) (Auto) 8.5, Eosinophils (%) (Auto) 0.5, Basophils (%) (Auto ) 1.4, Sodium Level 137, Potassium Level 4.0, Chloride Level 98, Carbon Dioxide Level 18L, Anion Gap 21H, Blood Urea Nitrogen 21, Creatinine 1.4H, Estimat Glomerular Filtration Rate 47.1, Glucose Level 201H, Calcium Level 9.6, Phosphorus Level 3.9, Magnesium Level 1.9, Total Bilirubin 0.3, Aspartate Amino Transf (AST/SGOT) 22, Alanine Aminotransferase (ALT/SGPT) 19, Alkaline Phosphatase 79, Troponin I < 0.30, Pro-B-Type Natriuretic Peptide 47, Total Protein 6.6, Albumin 4.4, Globulin 2.2, Albumin/Globulin Ratio 2.0, Triglycerides Level 390H, Cholesterol Level 223H, LDL Cholesterol 111H, HDL Cholesterol 34, Cholesterol/HDL Ratio 6.6H 06/07/16 05:20: Urine Eosinophils None seen, Urine Random Creatinine [Pending], Urine Random Microalbumin [Pending], Urine Random Total Protein 14, Urine Random Sodium 54, Urine Creatinine 146.7, Urine Microalbumin/Creatinine Ratio [Pending] Current Medications Medications (Trade) Dose Ordered Sig/Flynn Route PRN Reason Start Time Stop Time Status Last Admin Dose Admin Acetaminophen (Tylenol) 650 mg Q6H PRN ORAL Mild Pain/Temp > 100.5 06/06/16 05:45 07/06/16 05:44 Acetaminophen/ Hydrocodone Bitart ([place] 5/325) 1 tab Q6H PRN ORAL For Pain 06/06/16 06:45 06/13/16 06:44 Amlodipine Besylate (Norvasc) 10 mg DAILY ORAL 06/06/16 09:00 07/06/16 08:59 06/07/16 09:28 Aspirin (ASA) 81 mg DAILY ORAL 06/06/16 09:00 07/06/16 08:59 06/07/16 09:27 Dextrose (Dextrose 50%) STAT PRN IV Hypoglycemia 06/06/16 05:45 07/06/16 05:44 Folic Acid (Folate) 1 mg DAILY ORAL 06/06/16 09:00 07/06/16 08:59 06/07/16 09:27 Glimepiride (Amaryl) 4 mg BID ORAL 06/06/16 09:00 07/06/16 08:59 06/07/16 09:28 Heparin Sodium (Porcine) (Heparin 5000 units/ml) 5,000 units EVERY 8 HOURS SUBQ 06/06/16 06:00 07/06/16 05:59 06/07/16 14:49 Insulin Aspart (NovoLOG) BEFORE MEALS AND HS SUBQ 06/06/16 06:30 07/06/16 06:29 06/07/16 07:04 Nitroglycerin (Ntg) 0.4 mg Q5M PRN SL Prn Chest Pain 06/06/16 05:45 07/06/16 05:44 Patient Own Medication (Patient's Own Med) 1 ea DAILY ORAL 06/06/16 09:00 07/06/16 08:59 06/07/16 10:33 Patient Own Medication (Patient's Own Med) 1 ea DAILY ORAL 06/06/16 09:00 07/06/16 08:59 06/07/16 10:33 EASTON LAWSON Jun 07, 2016 16:49
--- NOTE | 2016-06-07 17:27 | Cardiology Report ---
APPROVED REPORT EXAM: Two-dimensional and M-mode echocardiogram with Doppler and color Doppler. M-Mode DIMENSIONS IVSd1.0 (0.7-1.1cm)Left Atrium (MM)3.7 (1.6-4.0cm) LVDd4.4 (3.5-5.6cm)Aortic Root2.9 (2.0-3.7cm) PWd1.1 (0.7-1.1cm)Aortic Cusp Exc.1.8 (1.5-2.0cm) LVDs3.1 (2.5-4.0cm) PWs1.8 cm Technically difficult study due to poor acoustic windows. Normal left ventricular chamber size, systolic function and wall motion. Left ventricular ejection fraction estimated to be 50-55 %. No evidence of pericardial fat or effusion. All other cardiac chamber sizes are within normal limits. Mild focal aortic valve sclerosis with adequate cusp excursion. Mildly thickened mitral valve leaflets with normal excursion. Mild mitral annulus and aortic root calcification. Pulmonic valve not well visualized. Normal tricuspid valve structure. IVC at normal size with physiologic collapse. A color flow and spectral Doppler study was performed and revealed: No aortic regurgitation. Trace mitral regurgitation. Mitral diastolic velocities suggest reduced left ventricular relaxation (Grade I). Trace tricuspid regurgitation. Tricuspid systolic velocities suggests peak right ventricular systolic pressure of 11 mmHg. No pulmonic regurgitation present.
--- NOTE | 2016-06-07 18:49 | Internal Med Progress Note ---
Subjective Date of Service: Jun 07, 2016 Physician Name Johanny Iyer Attending Physician Wei Resendiz MD Current Medications Medications (Trade) Dose Ordered Sig/Flynn Route PRN Reason Start Time Stop Time Status Last Admin Dose Admin Acetaminophen (Tylenol) 650 mg Q6H PRN ORAL Mild Pain/Temp > 100.5 06/06/16 05:45 07/06/16 05:44 Acetaminophen/ Hydrocodone Bitart ([place] 5/325) 1 tab Q6H PRN ORAL For Pain 06/06/16 06:45 06/13/16 06:44 Amlodipine Besylate (Norvasc) 10 mg DAILY ORAL 06/06/16 09:00 07/06/16 08:59 06/07/16 09:28 Aspirin (ASA) 81 mg DAILY ORAL 06/06/16 09:00 07/06/16 08:59 06/07/16 09:27 Dextrose (Dextrose 50%) STAT PRN IV Hypoglycemia 06/06/16 05:45 07/06/16 05:44 Folic Acid (Folate) 1 mg DAILY ORAL 06/06/16 09:00 07/06/16 08:59 06/07/16 09:27 Glimepiride (Amaryl) 4 mg BID ORAL 06/06/16 09:00 07/06/16 08:59 06/07/16 17:58 Heparin Sodium (Porcine) (Heparin 5000 units/ml) 5,000 units EVERY 8 HOURS SUBQ 06/06/16 06:00 07/06/16 05:59 06/07/16 14:49 Insulin Aspart (NovoLOG) BEFORE MEALS AND HS SUBQ 06/06/16 06:30 07/06/16 06:29 06/07/16 17:59 Nitroglycerin (Ntg) 0.4 mg Q5M PRN SL Prn Chest Pain 06/06/16 05:45 07/06/16 05:44 Patient Own Medication (Patient's Own Med) 1 ea DAILY ORAL 06/06/16 09:00 07/06/16 08:59 06/07/16 10:33 Patient Own Medication (Patient's Own Med) 1 ea DAILY ORAL 06/06/16 09:00 07/06/16 08:59 06/07/16 10:33 Allergies: Coded Allergies: MORPHINE (Verified Allergy, Unknown, 2/22/16) ROS Limited/Unobtainable: No Constitutional: Reports: no symptoms HEENT: Reports: no symptoms Cardiovascular: Reports: chest pain Respiratory: Reports: no symptoms Gastrointestinal/Abdominal: Reports: no symptoms Genitourinary: Reports: no symptoms Neurologic/Psychiatric: Reports: no symptoms Subjective 55 YO F admitted with chest pain. Await adenosine stress test results. Cover for Int Jose-Dr Resendiz Objective Last Vital Signs Date Time Temp Pulse Resp B/P Pulse Ox O2 Delivery O2 Flow Rate FiO2 06/07/16 16:00 97.5 93 20 136/71 100 Room Air General Appearance: WD/WN, no apparent distress, alert EENT: PERRL/EOMI, normal ENT inspection, TMs normal Neck: non-tender, normal alignment, supple Cardiovascular: normal peripheral pulses, normal rate, regular rhythm, no gallop/murmur, no JVD Respiratory/Chest: chest wall non-tender, lungs clear, normal breath sounds, no respiratory distress, no accessory muscle use Abdomen: normal bowel sounds, non tender, soft, no organomegaly, no mass Extremities: normal range of motion Neurologic: greenhouse technician II-XII grossly normal, no motor/sensory deficits Skin: normal pigmentation, warm/dry Laboratory Tests Test 06/07/16 05:10 06/07/16 05:20 White Blood Count 4.3 K/UL (4.8-10.8) L Red Blood Count 4.34 M/UL (4.20-5.40) Hemoglobin 13.9 G/DL (12.0-16.0) Hematocrit 39.8 % (37.0-47.0) Mean Corpuscular Volume 92 FL (80-99) Mean Corpuscular Hemoglobin 31.9 PG (27.0-31.0) H Mean Corpuscular Hemoglobin Concent 34.8 G/DL (32.0-36.0) Red Cell Distribution Width 11.8 % (11.6-14.8) Platelet Count 173 K/UL (150-450) Mean Platelet Volume 9.2 FL (6.5-10.1) Neutrophils (%) (Auto) 48.1 % (45.0-75.0) Lymphocytes (%) (Auto) 41.5 % (20.0-45.0) Monocytes (%) (Auto) 8.5 % (1.0-10.0) Eosinophils (%) (Auto) 0.5 % (0.0-3.0) Basophils (%) (Auto) 1.4 % (0.0-2.0) Sodium Level 137 mEQ/L (135-145) Potassium Level 4.0 mEQ/L (3.4-4.9) Chloride Level 98 mEQ/L (98-107) Carbon Dioxide Level 18 mEQ/L (20-30) L Anion Gap 21 (5-15) H Blood Urea Nitrogen 21 mg/dL (7-23) Creatinine 1.4 mg/dL (0.5-0.9) H Estimat Glomerular Filtration Rate 47.1 mL/min (>60) Glucose Level 201 mg/dL (74-106) H Calcium Level 9.6 mg/dL (8.6-10.2) Phosphorus Level 3.9 mg/dL (2.5-4.8) Magnesium Level 1.9 mg/dL (1.7-2.5) Total Bilirubin 0.3 mg/dL (0.0-1.2) Aspartate Amino Transf (AST/SGOT) 22 U/L (5-40) Alanine Aminotransferase (ALT/SGPT) 19 U/L (3-33) Alkaline Phosphatase 79 U/L (35-104) Troponin I < 0.30 ng/mL (<=0.30) Pro-B-Type Natriuretic Peptide 47 pg/mL (0-125) Total Protein 6.6 g/dL (6.6-8.7) Albumin 4.4 g/dL (3.5-5.2) Globulin 2.2 g/dL Albumin/Globulin Ratio 2.0 (1.0-2.7) Triglycerides Level 390 mg/dL (< 150) H Cholesterol Level 223 mg/dL (< 200) H LDL Cholesterol 111 mg/dL (60-99) H HDL Cholesterol 34 mg/dL (> 60) Cholesterol/HDL Ratio 6.6 (3.3-4.4) H Urine Eosinophils None seen Urine Random Creatinine Pending Urine Random Microalbumin Pending Urine Random Total Protein 14 mg/dL Urine Random Sodium 54 mmol/L Urine Creatinine 146.7 mg/dL Urine Microalbumin/Creatinine Ratio Pending Intake and Output 06/06/16 06/07/16 19:00 07:00 Intake Total 650 ml Output Total 1000 ml 1000 ml Balance -350 ml -1000 ml Intake Oral 650 ml Output Urine Total 1000 ml 1000 ml # Voids 4 Assessment/Plan Problem List: (1) Breast cancer Assessment & Plan: S/P lumpectomy and chemo/radiation therapy (2) Chest pain Assessment & Plan: Await cardiolite stress test. See cardiology note. (3) HTN (hypertension) (4) Diabetes mellitus Assessment & Plan: cont novolog and amaryl. (5) Obesity (BMI 30-39.9) Status: not improved JOHANNY IYER Jun 07, 2016 18:49
[2016-06-07 20:00] VITALS: BP 120/53
[2016-06-07] MEDS: Promethazine/Codeine 5ml UD ORAL PRN (21:57)
--- NOTE | 2016-06-07 23:52 | Cardiology Progress Note ---
Assessment/Plan Assessment/Plan 1. Probably non-cardiac chest pain, adenosine cardiolite test result is still pending. 2. Renal failure, creat down to 1.4. 3. Diabetes mellitus, continue aspirin and statin. 4. History of hypertension, continue amlodipine. 5. Dyslipidemia Subjective Subjective Sinus rhythm at 77. Still complains about chest pain in the left precordial area. Objective Last 24 Hour Vital Signs Date Time Temp Pulse Resp B/P Pulse Ox O2 Delivery O2 Flow Rate FiO2 06/07/16 20:00 84 06/07/16 20:00 97.3 77 21 120/53 96 Room Air 06/07/16 16:00 75 06/07/16 16:00 97.5 93 20 136/71 100 Room Air 06/07/16 12:00 97.4 87 18 122/80 98 89 06/07/16 12:00 85 06/07/16 09:28 90 125/72 06/07/16 08:00 97.0 90 18 120/72 98 Room Air 92 06/07/16 08:00 80 06/07/16 04:00 97.0 86 20 131/62 98 Room Air 0 06/07/16 04:00 88 06/07/16 00:00 98.0 58 20 133/62 98 Room Air 06/07/16 00:00 74 Intake and Output 06/06/16 06/07/16 19:00 07:00 Intake Total 650 ml Output Total 1000 ml 1000 ml Balance -350 ml -1000 ml Intake Oral 650 ml Output Urine Total 1000 ml 1000 ml # Voids 4 2D Echo: LVEF 55-60%, RVSP 11 mmHg, Grade I lVDD Laboratory Tests Test 06/07/16 05:10 06/07/16 05:20 White Blood Count 4.3 K/UL (4.8-10.8) L Red Blood Count 4.34 M/UL (4.20-5.40) Hemoglobin 13.9 G/DL (12.0-16.0) Hematocrit 39.8 % (37.0-47.0) Mean Corpuscular Volume 92 FL (80-99) Mean Corpuscular Hemoglobin 31.9 PG (27.0-31.0) H Mean Corpuscular Hemoglobin Concent 34.8 G/DL (32.0-36.0) Red Cell Distribution Width 11.8 % (11.6-14.8) Platelet Count 173 K/UL (150-450) Mean Platelet Volume 9.2 FL (6.5-10.1) Neutrophils (%) (Auto) 48.1 % (45.0-75.0) Lymphocytes (%) (Auto) 41.5 % (20.0-45.0) Monocytes (%) (Auto) 8.5 % (1.0-10.0) Eosinophils (%) (Auto) 0.5 % (0.0-3.0) Basophils (%) (Auto) 1.4 % (0.0-2.0) Sodium Level 137 mEQ/L (135-145) Potassium Level 4.0 mEQ/L (3.4-4.9) Chloride Level 98 mEQ/L (98-107) Carbon Dioxide Level 18 mEQ/L (20-30) L Anion Gap 21 (5-15) H Blood Urea Nitrogen 21 mg/dL (7-23) Creatinine 1.4 mg/dL (0.5-0.9) H Estimat Glomerular Filtration Rate 47.1 mL/min (>60) Glucose Level 201 mg/dL (74-106) H Calcium Level 9.6 mg/dL (8.6-10.2) Phosphorus Level 3.9 mg/dL (2.5-4.8) Magnesium Level 1.9 mg/dL (1.7-2.5) Total Bilirubin 0.3 mg/dL (0.0-1.2) Aspartate Amino Transf (AST/SGOT) 22 U/L (5-40) Alanine Aminotransferase (ALT/SGPT) 19 U/L (3-33) Alkaline Phosphatase 79 U/L (35-104) Troponin I < 0.30 ng/mL (<=0.30) Pro-B-Type Natriuretic Peptide 47 pg/mL (0-125) Total Protein 6.6 g/dL (6.6-8.7) Albumin 4.4 g/dL (3.5-5.2) Globulin 2.2 g/dL Albumin/Globulin Ratio 2.0 (1.0-2.7) Triglycerides Level 390 mg/dL (< 150) H Cholesterol Level 223 mg/dL (< 200) H LDL Cholesterol 111 mg/dL (60-99) H HDL Cholesterol 34 mg/dL (> 60) Cholesterol/HDL Ratio 6.6 (3.3-4.4) H Urine Eosinophils None seen Urine Random Creatinine Pending Urine Random Microalbumin Pending Urine Random Total Protein 14 mg/dL Urine Random Sodium 54 mmol/L Urine Creatinine 146.7 mg/dL Urine Microalbumin/Creatinine Ratio Pending Objective HEENT: Atraumatic and normocephalic. Anicteric. Pupils are equal, round, and reactive to light and accommodation. Extraocular muscles intact. NECK: JVP is less than 5 cm. No carotid bruits. Carotid upstrokes 2+ bilaterally. CVS: Normal S1 and S2. Regular rate and rhythm. No murmurs, gallops, or rubs. PMI is at fourth intercostal space at the midclavicular line. LUNGS: Clear to auscultation bilaterally. ABDOMEN: Soft, nontender, and nondistended. No hepatosplenomegaly. Positive bowel sounds. EXTREMITIES: No evidence of edema, clubbing, or cyanosis. LILY RUDD Jun 07, 2016 23:52
[2016-06-08] VITALS: BP 107/68
[2016-06-08 04:00] VITALS: BP 126/70
[2016-06-08] MEDS: Heparin 5000 units/ml inj SUBQ SCH ×3 (05:40→21:11)
[2016-06-08] MEDS: NovoLOG Insulin Flexpen SUBQ SCH ×5 (05:41→21:21)
[2016-06-08 08:00] VITALS: BP 119/79
[2016-06-08 08:31] LABS: BASOPHILS % (AUTO) 1.7 % (0.0-2.0); EOSINOPHILS % (AUTO) 0.6 % (0.0-3.0); LYMPHOCYTES % (AUTO) 39.4 % (20.0-45.0); MEAN CORPUSCULAR HEMOGLOBIN 31.6 PG (27.0-31.0); MEAN CORPUSCULAR HGB CONC 34.6 G/DL (32.0-36.0); MEAN CORPUSCULAR VOLUME 92 FL (80-99); MEAN PLATELET VOLUME 9.5 FL (6.5-10.1); MONOCYTES % (AUTO) 7.6 % (1.0-10.0); NEUTROPHILS % (AUTO) 50.7 % (45.0-75.0); PLATELET COUNT 187 K/UL (150-450); RED BLOOD COUNT 4.58 M/UL (4.20-5.40); RED CELL DISTRIBUTION WIDTH 11.7 % (11.6-14.8); WHITE BLOOD COUNT 5.1 K/UL (4.8-10.8)
[2016-06-08 08:56] LABS: CALCIUM 9.8 mg/dL (8.6-10.2); CREATININE 1.4 mg/dL (0.5-0.9); GLOMERULAR FILTRATION RATE 47.1 mL/min (>60); POTASSIUM 3.7 mEQ/L (3.4-4.9)
[2016-06-08] MEDS: TROKENDI ORAL SCH (09:00)
[2016-06-08] MEDS: JARDIANCE 25 MG ORAL SCH (09:07)
[2016-06-08] MEDS: Aspirin Baby 81mg ORAL SCH (09:07)
[2016-06-08] MEDS: Glimepiride 4mg tab ORAL SCH ×2 (09:07→17:31)
[2016-06-08] MEDS: Promethazine/Codeine 5ml UD ORAL PRN ×2 (09:07→21:08)
--- NOTE | 2016-06-08 09:31 | Pulmonology Progress Note ---
Assessment/Plan Assessment/Plan ASSESSMENT chest pain, likely non cardiac( as per cardio) - stress test negative, ECHO with EF 50-55%, RVSP of 11, cardio follows r/o for ACS (acute coronary syndrome)- troponin x 4 negative, ECG SR, no ST changes, thus ruled out for acute TN acute renal insufficiency/ATN - labs for today pending, creat down to 1.4, renal US with normal bilateral kidmey echogenicity, no hydro Peripheral neuropathy HTN (hypertension)- BP management with CCB and optimize as needed Diabetes mellitus- BS management with oral Amaryl and SS of insulin as needed Dyslipidemia - lipid panel with elevated TG, TC and LDL, on statin, continue Obesity (BMI 30-39.9) DVT prophylaxis CT head negative CXR negative can be dc from pulmonary standpoint, stress test negative, fup with PMD dc plan as per PMD case discussed and evaluated by supervising physician Subjective Allergies: Coded Allergies: MORPHINE (Verified Allergy, Unknown, 06/12/15) Subjective denies chest pain, SOB, palpitations Objective Last 24 Hour Vital Signs Date Time Temp Pulse Resp B/P Pulse Ox O2 Delivery O2 Flow Rate FiO2 06/08/16 09:08 75 119/79 06/08/16 04:00 130 06/08/16 04:00 97.7 71 19 126/70 100 Room Air 06/08/16 00:00 64 06/08/16 00:00 97.7 74 19 107/68 100 Room Air 06/07/16 20:00 84 06/07/16 20:00 97.3 77 21 120/53 96 Room Air 06/07/16 16:00 75 06/07/16 16:00 97.5 93 20 136/71 100 Room Air 06/07/16 12:00 97.4 87 18 122/80 98 89 06/07/16 12:00 85 06/07/16 09:28 90 125/72 Intake and Output 06/07/16 06/08/16 19:00 07:00 Intake Total 500 ml Balance 500 ml Intake Oral 500 ml # Voids 2 General Appearance: WD/WN, no acute distress HEENT: normocephalic, atraumatic, anicteric, mucous membranes moist, PERRL Respiratory/Chest: chest wall non-tender, lungs clear, normal breath sounds, no respiratory distress, no accessory muscle use Cardiovascular: normal peripheral pulses, normal rate, regular rhythm - SR on tele , no JVD Abdomen: normal bowel sounds, soft, non tender, non distended Genitourinary: normal external genitalia Extremities: no edema, pedal pulses normal Neurologic/Psychiatric: ct technician II-XII grossly normal, no motor/sensory deficits, alert, oriented x 3, responsive Musculoskeletal: normal muscle bulk Laboratory Tests 06/08/16 07:45: White Blood Count 5.1, Red Blood Count 4.58, Hemoglobin 14.5, Hematocrit 41.9, Mean Corpuscular Volume 92, Mean Corpuscular Hemoglobin 31.6H, Mean Corpuscular Hemoglobin Concent 34.6, Red Cell Distribution Width 11.7, Platelet Count 187, Mean Platelet Volume 9.5, Neutrophils (%) (Auto) 50.7, Lymphocytes (%) (Auto) 39.4, Monocytes (%) (Auto) 7.6, Eosinophils (%) (Auto) 0.6, Basophils (%) (Auto ) 1.7, Sodium Level [Pending], Potassium Level [Pending], Chloride Level [ Pending], Carbon Dioxide Level [Pending], Blood Urea Nitrogen [Pending], Creatinine [Pending], Estimat Glomerular Filtration Rate [Pending], Glucose Level [Pending], Calcium Level [Pending] Current Medications Medications (Trade) Dose Ordered Sig/Flynn Route PRN Reason Start Time Stop Time Status Last Admin Dose Admin Acetaminophen (Tylenol) 650 mg Q6H PRN ORAL Mild Pain/Temp > 100.5 06/06/16 05:45 07/06/16 05:44 Acetaminophen/ Hydrocodone Bitart ([place] 5/325) 1 tab Q6H PRN ORAL For Pain 06/06/16 06:45 06/13/16 06:44 Amlodipine Besylate (Norvasc) 10 mg DAILY ORAL 06/06/16 09:00 07/06/16 08:59 06/08/16 09:08 Aspirin (ASA) 81 mg DAILY ORAL 06/06/16 09:00 07/06/16 08:59 06/08/16 09:07 Dextrose (Dextrose 50%) STAT PRN IV Hypoglycemia 06/06/16 05:45 07/06/16 05:44 Folic Acid (Folate) 1 mg DAILY ORAL 06/06/16 09:00 07/06/16 08:59 06/08/16 09:07 Glimepiride (Amaryl) 4 mg BID ORAL 06/06/16 09:00 07/06/16 08:59 06/08/16 09:07 Heparin Sodium (Porcine) (Heparin 5000 units/ml) 5,000 units EVERY 8 HOURS SUBQ 06/06/16 06:00 07/06/16 05:59 06/08/16 05:40 Insulin Aspart (NovoLOG) BEFORE MEALS AND HS SUBQ 06/06/16 06:30 07/06/16 06:29 06/08/16 05:41 Nitroglycerin (Ntg) 0.4 mg Q5M PRN SL Prn Chest Pain 06/06/16 05:45 07/06/16 05:44 Patient Own Medication (Patient's Own Med) 1 ea DAILY ORAL 06/06/16 09:00 07/06/16 08:59 06/07/16 10:33 Patient Own Medication (Patient's Own Med) 1 ea DAILY ORAL 06/06/16 09:00 07/06/16 08:59 06/08/16 09:07 Promethazine HCl/ Codeine (Phenergan with Codeine) 5 ml Q4H PRN ORAL For Cough 06/07/16 21:45 07/07/16 21:44 06/08/16 09:07 Kamar ([facility])Ninoska NP Jun 08, 2016 09:31
--- NOTE | 2016-06-08 11:30 | Diagnostic Imaging Report ---
Indication: chest pain Technique: The study was conducted under the supervision of a order checker. Adenosine infusion followed by intravenous administration of 30.1 mCi of technetium 99m Myoview was performed. Three plane SPECT imaging of the heart was then performed. A resting study was performed as part of the one-day protocol with 10.5 mCi of technetium 99m myoview injected intravenously at that time. Three plane SPECT imaging of the heart was obtained. Comparison: None Clinical data: 1. Clinical response: Non ischemic 2. Electrocardiographic response: Non ischemic Findings: The myocardial perfusion scan demonstrates no definite fixed or perfusion defects. LVEF is 58%. Impression: Negative myocardial perfusion scan
[2016-06-08 12:00] VITALS: BP_SYST 148; BP_SYST 179; BP_DIAS 137; BP_DIAS 73
--- NOTE | 2016-06-08 13:14 | Internal Med Progress Note ---
Subjective Date of Service: Jun 08, 2016 Physician Name Johanny Iyer Attending Physician Wei Resendiz MD Current Medications Medications (Trade) Dose Ordered Sig/Flynn Route PRN Reason Start Time Stop Time Status Last Admin Dose Admin Acetaminophen (Tylenol) 650 mg Q6H PRN ORAL Mild Pain/Temp > 100.5 06/06/16 05:45 07/06/16 05:44 Acetaminophen/ Hydrocodone Bitart ([place] 5/325) 1 tab Q6H PRN ORAL For Pain 06/06/16 06:45 06/13/16 06:44 Amlodipine Besylate (Norvasc) 10 mg DAILY ORAL 06/06/16 09:00 07/06/16 08:59 06/08/16 09:08 Aspirin (ASA) 81 mg DAILY ORAL 06/06/16 09:00 07/06/16 08:59 06/08/16 09:07 Dextrose (Dextrose 50%) STAT PRN IV Hypoglycemia 06/06/16 05:45 07/06/16 05:44 Folic Acid (Folate) 1 mg DAILY ORAL 06/06/16 09:00 07/06/16 08:59 06/08/16 09:07 Glimepiride (Amaryl) 4 mg BID ORAL 06/06/16 09:00 07/06/16 08:59 06/08/16 09:07 Heparin Sodium (Porcine) (Heparin 5000 units/ml) 5,000 units EVERY 8 HOURS SUBQ 06/06/16 06:00 07/06/16 05:59 06/08/16 13:00 Insulin Aspart (NovoLOG) BEFORE MEALS AND HS SUBQ 06/06/16 06:30 07/06/16 06:29 06/08/16 12:00 Nitroglycerin (Ntg) 0.4 mg Q5M PRN SL Prn Chest Pain 06/06/16 05:45 07/06/16 05:44 Patient Own Medication (Patient's Own Med) 1 ea DAILY ORAL 06/06/16 09:00 07/06/16 08:59 06/07/16 10:33 Patient Own Medication (Patient's Own Med) 1 ea DAILY ORAL 06/06/16 09:00 07/06/16 08:59 06/08/16 09:07 Promethazine HCl/ Codeine (Phenergan with Codeine) 5 ml Q4H PRN ORAL For Cough 06/07/16 21:45 07/07/16 21:44 06/08/16 09:07 Allergies: Coded Allergies: MORPHINE (Verified Allergy, Unknown, 06/12/15) Subjective 55 YO F admitted with chest pain. Cover for Int Jose-Dr Resendiz Objective Last Vital Signs Date Time Temp Pulse Resp B/P Pulse Ox O2 Delivery O2 Flow Rate FiO2 06/08/16 12:00 69 06/08/16 09:08 119/79 06/08/16 08:00 96.9 18 100 Room Air Laboratory Tests Test 06/08/16 07:45 White Blood Count 5.1 K/UL (4.8-10.8) Red Blood Count 4.58 M/UL (4.20-5.40) Hemoglobin 14.5 G/DL (12.0-16.0) Hematocrit 41.9 % (37.0-47.0) Mean Corpuscular Volume 92 FL (80-99) Mean Corpuscular Hemoglobin 31.6 PG (27.0-31.0) H Mean Corpuscular Hemoglobin Concent 34.6 G/DL (32.0-36.0) Red Cell Distribution Width 11.7 % (11.6-14.8) Platelet Count 187 K/UL (150-450) Mean Platelet Volume 9.5 FL (6.5-10.1) Neutrophils (%) (Auto) 50.7 % (45.0-75.0) Lymphocytes (%) (Auto) 39.4 % (20.0-45.0) Monocytes (%) (Auto) 7.6 % (1.0-10.0) Eosinophils (%) (Auto) 0.6 % (0.0-3.0) Basophils (%) (Auto) 1.7 % (0.0-2.0) Sodium Level 139 mEQ/L (135-145) Potassium Level 3.7 mEQ/L (3.4-4.9) Chloride Level 101 mEQ/L (98-107) Carbon Dioxide Level 19 mEQ/L (20-30) L Anion Gap 19 (5-15) H Blood Urea Nitrogen 20 mg/dL (7-23) Creatinine 1.4 mg/dL (0.5-0.9) H Estimat Glomerular Filtration Rate 47.1 mL/min (>60) Glucose Level 164 mg/dL (74-106) H Calcium Level 9.8 mg/dL (8.6-10.2) Intake and Output 06/07/16 06/08/16 19:00 07:00 Intake Total 500 ml Balance 500 ml Intake Oral 500 ml # Voids 2 Objective General Appearance: WD/WN, no apparent distress, alert EENT: PERRL/EOMI, normal ENT inspection, TMs normal Neck: non-tender, normal alignment, supple Cardiovascular: normal peripheral pulses, normal rate, regular rhythm, no gallop/murmur, no JVD Respiratory/Chest: chest wall non-tender, lungs clear, normal breath sounds, no respiratory distress, no accessory muscle use Abdomen: normal bowel sounds, non tender, soft, no organomegaly, no mass Extremities: normal range of motion Neurologic: senior client advisor II-XII grossly normal, no motor/sensory deficits Skin: normal pigmentation, warm/dry Assessment/Plan Problem List: (1) Breast cancer Assessment & Plan: S/P lumpectomy and chemo/radiation therapy (2) Chest pain Assessment & Plan: Myocardial perfusion scan negative. See cardiology note. (3) HTN (hypertension) Assessment & Plan: Cont norvasc. (4) Diabetes mellitus Assessment & Plan: cont novolog and amaryl. (5) Obesity (BMI 30-39.9) Status: progressing Assessment/Plan Discharge planning: In home health services vs home health JOHANNY IYER Jun 08, 2016 13:14
--- NOTE | 2016-06-08 14:21 | Physician Query ---
PLEASE COMPLETE THE DOCUMENT BEFORE SIGNING Dear Dr. Resendiz Date 06/08/2016 [employer] Manager/CDS' Name: Kimberly Thomas/FERCHO_ [employer] Sales Manager/CDS Phone#: [phone] Exercise your independent professional judgment when responding to query. Questions asked do not imply particular answer is desired or expected. We greatly appreciate your clarification on this issue. Clinical Documentation States: "Chest Pain" -- documented in H&P "Probably non-cardiac chest pain" - in cardiology progress notes 06/07/16 Clinical Findings Show: Troponin = </= 0.30 ng/mL ECHO = 50-55% Stress Test = NEGATIVE Medication: Nitroglycerine 0.4 mg SL prn for chest pain ASA 162 mg shifted to 81 mg OD _ Please document the suspected etiology of Chest Pain: a.Type: []Cardiac []Non-cardiac []Unspecified b.Etiology - cardiac [] Aortic dissection []Mitral valve prolapsed [] Acute myocardial infarction []Spasm of coronary arteries [] Coronary Artery Disease []Pericarditis c.Etiology - non-cardiac [] Anxiety []Pleurisy [] Cancer []Pneumonia, type [x] Costochondritis []Pneumothorax [] GERD/Esophagitis []Pulmonary embolism [] Unable to determine []Other: Condition Present on Admission: [x] Yes [] No []Clinically Undeterminable Please also document in your Progress Notes and/or Discharge Summary and indicate if the condition was present on admission. SYDNI RESENDIZ M.D. Date & Time [facility] [facility]
[2016-06-08 16:00] VITALS: BP 141/71
--- NOTE | 2016-06-08 16:15 | Nephrology Progress Note ---
Assessment/Plan Assessment 1.ARF Improving 2.hyponatremia hypovolemic 3.HTN well controlled 4.DM 5. ckd stage 3 Plan PLAN to continue ivf monitoring renal function avoid NSAID Replace electrolyte as need it Subjective Constitutional: Reports: no symptoms HEENT: Reports: no symptoms Genitourinary: Reports: no symptoms Neurologic/Psychiatric: Reports: no symptoms Subjective alert and awake ok no cp or sob Objective Objective Last 24 Hour Vital Signs Date Time Temp Pulse Resp B/P Pulse Ox O2 Delivery O2 Flow Rate FiO2 06/08/16 12:00 96.7 74 17 148/73 99 Room Air 80 06/08/16 12:00 69 06/08/16 09:08 75 119/79 06/08/16 08:00 72 06/08/16 08:00 96.9 75 18 119/79 100 Room Air 75 06/08/16 04:00 130 06/08/16 04:00 97.7 71 19 126/70 100 Room Air 06/08/16 00:00 64 06/08/16 00:00 97.7 74 19 107/68 100 Room Air 06/07/16 20:00 84 06/07/16 20:00 97.3 77 21 120/53 96 Room Air Intake and Output 06/07/16 06/08/16 19:00 07:00 Intake Total 500 ml Balance 500 ml Intake Oral 500 ml # Voids 2 Laboratory Tests 06/08/16 07:45: White Blood Count 5.1, Red Blood Count 4.58, Hemoglobin 14.5, Hematocrit 41.9, Mean Corpuscular Volume 92, Mean Corpuscular Hemoglobin 31.6H, Mean Corpuscular Hemoglobin Concent 34.6, Red Cell Distribution Width 11.7, Platelet Count 187, Mean Platelet Volume 9.5, Neutrophils (%) (Auto) 50.7, Lymphocytes (%) (Auto) 39.4, Monocytes (%) (Auto) 7.6, Eosinophils (%) (Auto) 0.6, Basophils (%) (Auto ) 1.7, Sodium Level 139, Potassium Level 3.7, Chloride Level 101, Carbon Dioxide Level 19L, Anion Gap 19H, Blood Urea Nitrogen 20, Creatinine 1.4H, Estimat Glomerular Filtration Rate 47.1, Glucose Level 164H, Calcium Level 9.8 Height (Feet): 5 Height (Inches): 1.00 Weight (Pounds): 192 Objective HEAD AND NECK: No JVP. No LAD. No thyromegaly. Extraocular movement intact. Pupils are reactive to light and accommodation. LUNGS: Clear to auscultation. CARDIAC: Regular rate and rhythm. S1 and S2. No murmur. No rub. ABDOMEN: Soft, nontender, and nondistended. No organomegaly. EXTREMITIES: Trace edema. No clubbing. No cyanosis. NEUROLOGIC: Cranial nerves II through XII within normal limits. Upper and lower extremities are grossly intact. JANIS LIN Jun 08, 2016 16:15
[2016-06-08 17:13] LABS: CREATININE RANDOM URINE 136.7 mg/dL (Not Estab.)
[2016-06-08 20:00] VITALS: BP 126/87
--- NOTE | 2016-06-08 21:03 | Cardiology Progress Note ---
Assessment/Plan Assessment/Plan 1. Probably non-cardiac chest pain, adenosine cardiolite test was non-ischemic. 2. Renal failure, creat stable at 1.4. 3. Diabetes mellitus, continue aspirin and statin. 4. History of hypertension, continue amlodipine. 5. Dyslipidemia Subjective Subjective Sinus rhythm at 85. Non-ischemic stress test. Objective Last 24 Hour Vital Signs Date Time Temp Pulse Resp B/P Pulse Ox O2 Delivery O2 Flow Rate FiO2 06/08/16 20:00 85 18 126/87 100 Room Air 06/08/16 16:00 76 18 141/71 99 Room Air 06/08/16 16:00 65 06/08/16 12:00 96.7 74 17 148/73 99 Room Air 80 06/08/16 12:00 69 06/08/16 09:08 75 119/79 06/08/16 08:00 72 06/08/16 08:00 96.9 75 18 119/79 100 Room Air 75 06/08/16 04:00 130 06/08/16 04:00 97.7 71 19 126/70 100 Room Air 06/08/16 00:00 64 06/08/16 00:00 97.7 74 19 107/68 100 Room Air Intake and Output 06/07/16 06/08/16 19:00 07:00 Intake Total 500 ml Balance 500 ml Intake Oral 500 ml # Voids 2 2D Echo: LVEF 55-60%, RVSP 11 mmHg, Grade I lVDD Laboratory Tests Test 06/08/16 07:45 White Blood Count 5.1 K/UL (4.8-10.8) Red Blood Count 4.58 M/UL (4.20-5.40) Hemoglobin 14.5 G/DL (12.0-16.0) Hematocrit 41.9 % (37.0-47.0) Mean Corpuscular Volume 92 FL (80-99) Mean Corpuscular Hemoglobin 31.6 PG (27.0-31.0) H Mean Corpuscular Hemoglobin Concent 34.6 G/DL (32.0-36.0) Red Cell Distribution Width 11.7 % (11.6-14.8) Platelet Count 187 K/UL (150-450) Mean Platelet Volume 9.5 FL (6.5-10.1) Neutrophils (%) (Auto) 50.7 % (45.0-75.0) Lymphocytes (%) (Auto) 39.4 % (20.0-45.0) Monocytes (%) (Auto) 7.6 % (1.0-10.0) Eosinophils (%) (Auto) 0.6 % (0.0-3.0) Basophils (%) (Auto) 1.7 % (0.0-2.0) Sodium Level 139 mEQ/L (135-145) Potassium Level 3.7 mEQ/L (3.4-4.9) Chloride Level 101 mEQ/L (98-107) Carbon Dioxide Level 19 mEQ/L (20-30) L Anion Gap 19 (5-15) H Blood Urea Nitrogen 20 mg/dL (7-23) Creatinine 1.4 mg/dL (0.5-0.9) H Estimat Glomerular Filtration Rate 47.1 mL/min (>60) Glucose Level 164 mg/dL (74-106) H Calcium Level 9.8 mg/dL (8.6-10.2) Objective HEENT: Atraumatic and normocephalic. Anicteric. Pupils are equal, round, and reactive to light and accommodation. Extraocular muscles intact. NECK: JVP is less than 5 cm. No carotid bruits. Carotid upstrokes 2+ bilaterally. CVS: Normal S1 and S2. Regular rate and rhythm. No murmurs, gallops, or rubs. PMI is at fourth intercostal space at the midclavicular line. LUNGS: Clear to auscultation bilaterally. ABDOMEN: Soft, nontender, and nondistended. No hepatosplenomegaly. Positive bowel sounds. EXTREMITIES: No evidence of edema, clubbing, or cyanosis. LILY RUDD Jun 08, 2016 21:03
[2016-06-08] MEDS ORDERED: Nitroglycerin Subl 0.4mg tab (Bottle Of 25) SL PRN (23:15)
[2016-06-09] VITALS: BP 137/73
[2016-06-09 04:00] VITALS: BP 132/72
[2016-06-09] MEDS: Heparin 5000 units/ml inj SUBQ SCH ×3 (06:36→20:57)
[2016-06-09] MEDS: NovoLOG Insulin Flexpen SUBQ SCH ×4 (06:37→20:56)
[2016-06-09 08:00] VITALS: BP 131/74
[2016-06-09 08:21] LABS: BASOPHILS % (AUTO) 1.5 % (0.0-2.0); EOSINOPHILS % (AUTO) 0.7 % (0.0-3.0); LYMPHOCYTES % (AUTO) 34.3 % (20.0-45.0); MEAN CORPUSCULAR HGB CONC 33.1 G/DL (32.0-36.0); MEAN CORPUSCULAR VOLUME 94 FL (80-99); MONOCYTES % (AUTO) 6.7 % (1.0-10.0); NEUTROPHILS % (AUTO) 56.8 % (45.0-75.0); PLATELET COUNT 132 K/UL (150-450); RED BLOOD COUNT 4.64 M/UL (4.20-5.40); RED CELL DISTRIBUTION WIDTH 12.3 % (11.6-14.8); WHITE BLOOD COUNT 4.4 K/UL (4.8-10.8)
[2016-06-09 08:29] LABS: CALCIUM 9.5 mg/dL (8.6-10.2); CREATININE 1.3 mg/dL (0.5-0.9); GLOMERULAR FILTRATION RATE 51.4 mL/min (>60)
[2016-06-09] MEDS: Glimepiride 4mg tab ORAL SCH ×2 (08:42→16:36)
[2016-06-09] MEDS: Aspirin Baby 81mg ORAL SCH (08:42)
[2016-06-09 12:00] VITALS: BP 141/84
[2016-06-09] MEDS: Norco 5mg/325mg tab ORAL PRN ×2 (12:25→21:03)
[2016-06-09] MEDS: Promethazine/Codeine 5ml UD ORAL PRN ×2 (12:27→16:39)
--- NOTE | 2016-06-09 14:25 | Internal Med Progress Note ---
Subjective Date of Service: Jun 09, 2016 Physician Name LucyJohanny Attending Physician Wei Resendiz MD Current Medications Medications (Trade) Dose Ordered Sig/Flynn Route PRN Reason Start Time Stop Time Status Last Admin Dose Admin Acetaminophen (Tylenol) 650 mg Q6H PRN ORAL Mild Pain/Temp > 100.5 06/08/16 23:45 07/08/16 23:44 Acetaminophen/ Hydrocodone Bitart ([place] 5/325) 1 tab Q6H PRN ORAL For Pain 06/09/16 00:45 06/16/16 00:44 06/09/16 12:25 Amlodipine Besylate (Norvasc) 10 mg DAILY ORAL 06/09/16 09:00 07/09/16 08:59 06/09/16 08:43 Aspirin (ASA) 81 mg DAILY ORAL 06/09/16 09:00 07/09/16 08:59 06/09/16 08:42 Dextrose (Dextrose 50%) STAT PRN IV Hypoglycemia 06/09/16 05:45 07/09/16 05:44 Folic Acid (Folate) 1 mg DAILY ORAL 06/09/16 09:00 07/09/16 08:59 06/09/16 08:42 Glimepiride (Amaryl) 4 mg BID ORAL 06/09/16 09:00 07/09/16 08:59 06/09/16 08:42 Heparin Sodium (Porcine) (Heparin 5000 units/ml) 5,000 units EVERY 8 HOURS SUBQ 06/09/16 06:00 07/09/16 05:59 06/09/16 06:36 Insulin Aspart (NovoLOG) BEFORE MEALS AND HS SUBQ 06/09/16 06:30 07/09/16 06:29 06/09/16 12:27 Nitroglycerin (Ntg) 0.4 mg Q5M PRN SL Prn Chest Pain 06/08/16 23:15 07/08/16 23:14 Patient Own Medication (Patient's Own Med) 1 ea DAILY ORAL 06/09/16 09:00 07/09/16 08:59 Patient Own Medication (Patient's Own Med) 1 ea DAILY ORAL 06/09/16 09:00 07/09/16 08:59 Promethazine HCl/ Codeine (Phenergan with Codeine) 5 ml Q4H PRN ORAL For Cough 06/09/16 01:45 07/09/16 01:44 06/09/16 12:27 Allergies: Coded Allergies: MORPHINE (Verified Allergy, Unknown, 06/12/15) ROS Limited/Unobtainable: No Constitutional: Reports: no symptoms HEENT: Reports: no symptoms Cardiovascular: Reports: chest pain Respiratory: Reports: no symptoms Gastrointestinal/Abdominal: Reports: no symptoms Genitourinary: Reports: no symptoms Neurologic/Psychiatric: Reports: no symptoms Subjective 55 YO F admitted with chest pain. Cover for Int Med-Dr Resendiz Objective Last Vital Signs Date Time Temp Pulse Resp B/P Pulse Ox O2 Delivery O2 Flow Rate FiO2 06/09/16 12:00 97.5 71 20 141/84 100 Room Air Laboratory Tests Test 06/09/16 07:00 White Blood Count 4.4 K/UL (4.8-10.8) L Red Blood Count 4.64 M/UL (4.20-5.40) Hemoglobin 14.4 G/DL (12.0-16.0) Hematocrit 43.4 % (37.0-47.0) Mean Corpuscular Volume 94 FL (80-99) Mean Corpuscular Hemoglobin 31.0 PG (27.0-31.0) Mean Corpuscular Hemoglobin Concent 33.1 G/DL (32.0-36.0) Red Cell Distribution Width 12.3 % (11.6-14.8) Platelet Count 132 K/UL (150-450) L Mean Platelet Volume 9.0 FL (6.5-10.1) Neutrophils (%) (Auto) 56.8 % (45.0-75.0) Lymphocytes (%) (Auto) 34.3 % (20.0-45.0) Monocytes (%) (Auto) 6.7 % (1.0-10.0) Eosinophils (%) (Auto) 0.7 % (0.0-3.0) Basophils (%) (Auto) 1.5 % (0.0-2.0) Sodium Level 139 mEQ/L (135-145) Potassium Level 4.0 mEQ/L (3.4-4.9) Chloride Level 101 mEQ/L (98-107) Carbon Dioxide Level 19 mEQ/L (20-30) L Anion Gap 19 (5-15) H Blood Urea Nitrogen 24 mg/dL (7-23) H Creatinine 1.3 mg/dL (0.5-0.9) H Estimat Glomerular Filtration Rate 51.4 mL/min (>60) Glucose Level 189 mg/dL (74-106) H Calcium Level 9.5 mg/dL (8.6-10.2) Intake and Output 06/08/16 06/09/16 19:00 07:00 Intake Total 680 ml 300 ml Output Total 860 ml Balance -180 ml 300 ml Intake Oral 680 ml 300 ml Output Urine Total 860 ml # Voids 3 2 Objective General Appearance: WD/WN, no apparent distress, alert EENT: PERRL/EOMI, normal ENT inspection, TMs normal Neck: non-tender, normal alignment, supple Cardiovascular: normal peripheral pulses, normal rate, regular rhythm, no gallop/murmur, no JVD Respiratory/Chest: chest wall non-tender, lungs clear, normal breath sounds, no respiratory distress, no accessory muscle use Abdomen: normal bowel sounds, non tender, soft, no organomegaly, no mass Extremities: normal range of motion Neurologic: tier over II-XII grossly normal, no motor/sensory deficits Skin: normal pigmentation, warm/dry Assessment/Plan Problem List: (1) Breast cancer Assessment & Plan: S/P lumpectomy and chemo/radiation therapy (2) Chest pain Assessment & Plan: Myocardial perfusion scan negative. See cardiology note. (3) HTN (hypertension) Assessment & Plan: Cont norvasc. (4) Diabetes mellitus Assessment & Plan: cont novolog and amaryl. (5) Obesity (BMI 30-39.9) Assessment/Plan Discharge planning: In home health services vs home health JOHANNY IYRE Jun 09, 2016 14:25
--- NOTE | 2016-06-09 14:25 | Pulmonology Progress Note ---
Assessment/Plan Assessment/Plan ASSESSMENT chest pain, likely non cardiac( as per cardio) - stress test negative, ECHO with EF 50-55%, RVSP of 11, cardio follows r/o for ACS (acute coronary syndrome)- troponin x 4 negative, ECG SR, no ST changes, thus ruled out for acute [place] acute renal insufficiency/ATN - labs for today pending, creat down to 1.4, renal US with normal bilateral kidmey echogenicity, no hydro Peripheral neuropathy HTN (hypertension)- BP management with CCB and optimize as needed Diabetes mellitus- BS management with oral Amaryl and SS of insulin as needed Dyslipidemia - lipid panel with elevated TG, TC and LDL, on statin, continue Obesity (BMI 30-39.9) DVT prophylaxis CT head negative CXR negative can be dc from pulmonary standpoint, stress test negative, fup with PMD dc plan as per PMD today ? case discussed and evaluated by supervising physician Subjective Allergies: Coded Allergies: MORPHINE (Verified Allergy, Unknown, 06/12/15) Subjective denies chest pain, SOB, palpitations stress test nonischemic Objective Last 24 Hour Vital Signs Date Time Temp Pulse Resp B/P Pulse Ox O2 Delivery O2 Flow Rate FiO2 06/09/16 12:00 97.5 71 20 141/84 100 Room Air 06/09/16 08:43 93 131/74 06/09/16 08:00 97.7 93 20 131/74 100 Room Air 06/09/16 04:00 96.4 71 20 132/72 100 Room Air 06/09/16 00:00 97.0 60 20 137/73 100 Room Air 06/08/16 20:00 85 18 126/87 100 Room Air 06/08/16 16:00 76 18 141/71 99 Room Air 06/08/16 16:00 65 Intake and Output 06/08/16 06/09/16 19:00 07:00 Intake Total 680 ml 300 ml Output Total 860 ml Balance -180 ml 300 ml Intake Oral 680 ml 300 ml Output Urine Total 860 ml # Voids 3 2 Objective General Appearance: WD/WN, no acute distress HEENT: normocephalic, atraumatic, anicteric, mucous membranes moist, PERRL Respiratory/Chest: chest wall non-tender, lungs clear, normal breath sounds, no respiratory distress, no accessory muscle use Cardiovascular: normal peripheral pulses, normal rate, regular rhythm - SR on tele , no JVD Abdomen: normal bowel sounds, soft, non tender, non distended Genitourinary: normal external genitalia Extremities: no edema, pedal pulses normal Neurologic/Psychiatric: cigarette catcher II-XII grossly normal, no motor/sensory deficits, alert, oriented x 3, responsive Musculoskeletal: normal muscle bulk Laboratory Tests 06/09/16 07:00: White Blood Count 4.4L, Red Blood Count 4.64, Hemoglobin 14.4, Hematocrit 43.4, Mean Corpuscular Volume 94, Mean Corpuscular Hemoglobin 31.0, Mean Corpuscular Hemoglobin Concent 33.1, Red Cell Distribution Width 12.3, Platelet Count 132L, Mean Platelet Volume 9.0, Neutrophils (%) (Auto) 56.8, Lymphocytes (%) (Auto) 34.3, Monocytes (%) (Auto) 6.7, Eosinophils (%) (Auto) 0.7, Basophils (%) (Auto ) 1.5, Sodium Level 139, Potassium Level 4.0, Chloride Level 101, Carbon Dioxide Level 19L, Anion Gap 19H, Blood Urea Nitrogen 24H, Creatinine 1.3H, Estimat Glomerular Filtration Rate 51.4, Glucose Level 189H, Calcium Level 9.5 Current Medications Medications (Trade) Dose Ordered Sig/Flynn Route PRN Reason Start Time Stop Time Status Last Admin Dose Admin Acetaminophen (Tylenol) 650 mg Q6H PRN ORAL Mild Pain/Temp > 100.5 06/08/16 23:45 07/08/16 23:44 Acetaminophen/ Hydrocodone Bitart (Logan 5/325) 1 tab Q6H PRN ORAL For Pain 06/09/16 00:45 06/16/16 00:44 06/09/16 12:25 Amlodipine Besylate (Norvasc) 10 mg DAILY ORAL 06/09/16 09:00 07/09/16 08:59 06/09/16 08:43 Aspirin (ASA) 81 mg DAILY ORAL 06/09/16 09:00 07/09/16 08:59 06/09/16 08:42 Dextrose (Dextrose 50%) STAT PRN IV Hypoglycemia 06/09/16 05:45 07/09/16 05:44 Folic Acid (Folate) 1 mg DAILY ORAL 06/09/16 09:00 07/09/16 08:59 06/09/16 08:42 Glimepiride (Amaryl) 4 mg BID ORAL 06/09/16 09:00 07/09/16 08:59 06/09/16 08:42 Heparin Sodium (Porcine) (Heparin 5000 units/ml) 5,000 units EVERY 8 HOURS SUBQ 06/09/16 06:00 07/09/16 05:59 06/09/16 06:36 Insulin Aspart (NovoLOG) BEFORE MEALS AND HS SUBQ 06/09/16 06:30 07/09/16 06:29 06/09/16 12:27 Nitroglycerin (Ntg) 0.4 mg Q5M PRN SL Prn Chest Pain 06/08/16 23:15 07/08/16 23:14 Patient Own Medication (Patient's Own Med) 1 ea DAILY ORAL 06/09/16 09:00 07/09/16 08:59 Patient Own Medication (Patient's Own Med) 1 ea DAILY ORAL 06/09/16 09:00 07/09/16 08:59 Promethazine HCl/ Codeine (Phenergan with Codeine) 5 ml Q4H PRN ORAL For Cough 06/09/16 01:45 07/09/16 01:44 06/09/16 12:27 Kamar ([facility])Ninoska NP Jun 09, 2016 14:25
[2016-06-09 16:30] VITALS: BP 149/82
[2016-06-09 20:00] VITALS: BP 161/72
[2016-06-10] VITALS: BP 125/63
[2016-06-10 04:00] VITALS: BP 144/74
[2016-06-10] MEDS: Heparin 5000 units/ml inj SUBQ SCH (06:00)
[2016-06-10] MEDS: NovoLOG Insulin Flexpen SUBQ SCH ×2 (06:38→11:30)
[2016-06-10 07:49] LABS: BASOPHILS % (AUTO) 1.7 % (0.0-2.0); EOSINOPHILS % (AUTO) 1.3 % (0.0-3.0); LYMPHOCYTES % (AUTO) 36.2 % (20.0-45.0); MEAN CORPUSCULAR HEMOGLOBIN 31.5 PG (27.0-31.0); MEAN CORPUSCULAR HGB CONC 33.9 G/DL (32.0-36.0); MEAN CORPUSCULAR VOLUME 93 FL (80-99); MEAN PLATELET VOLUME 8.3 FL (6.5-10.1); MONOCYTES % (AUTO) 8.4 % (1.0-10.0); NEUTROPHILS % (AUTO) 52.5 % (45.0-75.0); PLATELET COUNT 202 K/UL (150-450); RED BLOOD COUNT 4.49 M/UL (4.20-5.40); RED CELL DISTRIBUTION WIDTH 12.3 % (11.6-14.8); WHITE BLOOD COUNT 4.8 K/UL (4.8-10.8)
[2016-06-10 07:52] LABS: CALCIUM 9.7 mg/dL (8.6-10.2); CREATININE 1.3 mg/dL (0.5-0.9); GLOMERULAR FILTRATION RATE 51.4 mL/min (>60); POTASSIUM 4.2 mEQ/L (3.4-4.9)
[2016-06-10 08:00] VITALS: BP 155/75
[2016-06-10] MEDS: Aspirin Baby 81mg ORAL SCH (08:44)
[2016-06-10] MEDS: Glimepiride 4mg tab ORAL SCH (08:47)
--- NOTE | 2016-06-10 09:52 | Nephrology Progress Note ---
Assessment/Plan Assessment 1.ARF Improving 2.hyponatremia hypovolemic 3.HTN well controlled 4.DM 5. ckd stage 3 Plan PLAN to continue ivf monitoring renal function avoid NSAID Replace electrolyte as need it Subjective Constitutional: Reports: no symptoms HEENT: Reports: no symptoms Genitourinary: Reports: no symptoms Neurologic/Psychiatric: Reports: no symptoms Subjective alert and awake ok no cp or sob Objective Objective Last 24 Hour Vital Signs Date Time Temp Pulse Resp B/P Pulse Ox O2 Delivery O2 Flow Rate FiO2 06/10/16 08:47 90 155/75 06/10/16 08:00 97.7 90 20 155/75 100 Room Air 06/10/16 04:00 97.2 64 20 144/74 100 Room Air 06/10/16 00:00 96.3 56 20 125/63 99 Room Air 06/09/16 22:02 97.9 06/09/16 20:00 97.9 72 19 161/72 100 Room Air 06/09/16 16:30 97.2 95 16 149/82 99 Room Air 06/09/16 12:00 97.5 71 20 141/84 100 Room Air Intake and Output 06/09/16 06/10/16 19:00 07:00 Intake Total 630 ml 300 ml Balance 630 ml 300 ml Intake Oral 630 ml 300 ml # Voids 4 5 # Bowel Movements 1 Laboratory Tests 06/10/16 06:55: White Blood Count 4.8, Red Blood Count 4.49, Hemoglobin 14.1, Hematocrit 41.6, Mean Corpuscular Volume 93, Mean Corpuscular Hemoglobin 31.5H, Mean Corpuscular Hemoglobin Concent 33.9, Red Cell Distribution Width 12.3, Platelet Count 202#, Mean Platelet Volume 8.3, Neutrophils (%) (Auto) 52.5, Lymphocytes (%) (Auto) 36.2, Monocytes (%) (Auto) 8.4, Eosinophils (%) (Auto) 1.3, Basophils (%) (Auto ) 1.7, Sodium Level 139, Potassium Level 4.2, Chloride Level 101, Carbon Dioxide Level 21, Anion Gap 17H, Blood Urea Nitrogen 23, Creatinine 1.3H, Estimat Glomerular Filtration Rate 51.4, Glucose Level 187H, Calcium Level 9.7 Height (Feet): 5 Height (Inches): 1.00 Weight (Pounds): 192 Objective HEAD AND NECK: No JVP. No LAD. No thyromegaly. Extraocular movement intact. Pupils are reactive to light and accommodation. LUNGS: Clear to auscultation. CARDIAC: Regular rate and rhythm. S1 and S2. No murmur. No rub. ABDOMEN: Soft, nontender, and nondistended. No organomegaly. EXTREMITIES: Trace edema. No clubbing. No cyanosis. NEUROLOGIC: Cranial nerves II through XII within normal limits. Upper and lower extremities are grossly intact. JANIS LIN Jun 10, 2016 09:52
--- NOTE | 2016-06-10 11:38 | Discharge Summary ---
Discharge Summary Hospital Course Date of Admission Jun 06, 2016 at 01:00 Date of Discharge Admitting Diagnosis Acute coronary syndrome HPI Antonina Sanchez is a 55 year old female who was admitted on Jun 06, 2016 at 01:00 for Acute Coronary Syndrome Hospital Course Dictated for Int Jose-Dr Bagley no. [id number]. Discharge Discharge Disposition Patient was discharged to Home (01) Discharge Diagnoses: JOHANNY IYER Jun 10, 2016 11:38
[2016-06-10 12:00] VITALS: BP 151/81
--- NOTE | 2016-06-10 17:48 | Discharge Summary ---
DATE OF ADMISSION: 06/06/2016 DATE OF DISCHARGE: 06/10/2016 ADMITTING DIAGNOSES: 1. Chest pain. 2. Diabetes type 2. 3. Hypertension. 4. Left breast cancer. 5. Chronic low back pain. DISCHARGE DIAGNOSES: 1. Chest pain. 2. Diabetes type 2. 3. Hypertension. 4. Left breast cancer. 5. Chronic low back pain. HOSPITAL COURSE BY PROBLEM LIST: 1. Chest pain. A Cardiology consultation was obtained with Dr. Gera Lion. The patient had an echocardiogram, which revealed an ejection fraction 58%. The patient also underwent a myocardial perfusion scan, which was reported as negative. The patient to follow up with her primary care physician in one week. Chest pain is not secondary to acute coronary syndrome. 2. Diabetes type 2. The patient remained on NovoLog sliding scale during the hospitalization. Blood pressure is well controlled in the hospitalization. The patient to follow up with her primary care physician in one week. 3. Hypertension. The patient remained on Norvasc 10 mg one tablet p.o. daily. Blood pressure is well controlled in the hospitalization. The patient to follow up with her primary care physician in one week. 4. History of left breast cancer. The patient is status post left breast lumpectomy and chemotherapy and radiation therapy. 5. Chronic low back pain. DISCHARGE MEDICATIONS: Please refer discharge medication list. DISCHARGE INSTRUCTIONS: 1. The patient is discharged home today, 06/10/2016. 2. The patient is to follow up with her primary care physician in one week. Steven Ayala M.D. DR: SOPHIA JOB#: [id number] CC:
== END 2016-06-10 12:45 | disposition home or self-care (01) | DRG 205 ==
LOC: EMR 00:40 → 2E 01:00 → EDBEDREQ 02:15 → 4E 06-08 22:51
DX: M94.0 Chondrocostal junction syndrome [Tietze] (principal); N17.0 Acute kidney failure with tubular necrosis; E87.1 Hypo-osmolality and hyponatremia; Z85.3 Personal history of malignant neoplasm of breast; Z92.3 Personal history of irradiation; G89.29 Other chronic pain; M54.5 Low back pain; Z88.6 Allergy status to analgesic agent; E66.9 Obesity, unspecified; Z68.30 Body mass index [BMI] 30.0-30.9, adult; G62.9 Polyneuropathy, unspecified; Z87.891 Personal history of nicotine dependence; Z82.49 Family history of ischemic heart disease and other diseases of the circulatory system; E78.5 Hyperlipidemia, unspecified; I12.9 Hypertensive chronic kidney disease with stage 1 through stage 4 chronic kidney disease, or unspecified chronic kidney disease; N18.3 Chronic kidney disease, stage 3 (moderate); E11.9 Type 2 diabetes mellitus without complications
CPT/HCPCS: 36415; 70450; 71010; 76775; 78452; 80048; 80053; 80061; 81003; 82043; 82044; 82550; 82553; 82570; 82962; 83735; 83880; 84100; 84300; 84484; 85025; 89050; 93005; 93017; 93306; J1815

== ENCOUNTER 2016-10-29 08:59 | Emergency (ER) | payer MEDICARE, MEDICAID ==
[~2016-10-29] VITALS: Ht 154.9 cm; Wt 74.8 kg
[~2016-10-29 08:59] MED LIST changes: +AMARYL4 MG ORAL; +B-121000 MCG PO; +D3 DOTS2000 UNI1 PO; +FOLBIC RF TABL1 EACH PO; +FOLIC ACID0.4 MG ORAL; +FOLIC ACID1 MG ORAL; +TROKENDI XR100 MG PO; +VITAMIN D400 INTLU ORAL
[2016-10-29 09:13] VITALS: BP 148/85
[2016-10-29] MEDS ORDERED: SIMVASTATIN20 MG ORAL (09:18)
[2016-10-29] MEDS ORDERED: BRINTELLIX10 MG PO (09:18)
[2016-10-29] MEDS ORDERED: TRAMADOL HCL50 MG ORAL (09:18)
[2016-10-29] MEDS ORDERED: EPINEPHrine 1mg/1ml Amp IM ONE (09:45)
[2016-10-29] MEDS ORDERED: Bacitracin Oint UD TOPIC ONE (09:45)
[2016-10-29 09:56] VITALS: BP 158/89
[2016-10-29 10:10] VITALS: BP 134/63
--- NOTE | 2016-10-29 10:48 | Emergency Room Report ---
History of Present Illness General Chief Complaint: Skin Rash/Abscess Source: Patient Present Illness Allergies: Coded Allergies: MORPHINE (Verified Allergy, Unknown, 06/12/15) Patient History Last Menstrual Period: "partial hyst" Nursing Documentation-PMH Hx Cardiac Problems: Yes Hx Hypertension: Yes Hx Diabetes: Yes Hx Cancer: Yes - Left breast ("Cancer free") Hx Gastrointestinal Problems: No Hx Neurological Problems: No Physical Exam Vital Signs Date Time Temp Pulse Resp B/P Pulse Ox O2 Delivery O2 Flow Rate FiO2 10/29/16 09:04 98.4 83 16 148/85 98 Room Air Medical Decision Making Diagnostic Impression: Primary Impression: Hives Status: improved Disposition: HOME, SELF-CARE Condition: Improved Referrals: ROSA M SEGURA (PCP) Meliton Mari M.D. Oct 29, 2016 10:48
[2016-10-29] MEDS ORDERED: PREDNISONE20 MG ORAL (10:51)
[2016-10-29] MEDS ORDERED: VISTARIL25 M1 PO (10:51)
[2016-10-29] MEDS ORDERED: TRIAMCINOLONE A15 GM TP (10:51)
[2016-10-29 11:07] VITALS: BP 134/63
== END 2016-10-29 11:08 | disposition home or self-care (01) ==
LOC: EMR 09:24
DX: L50.9 Urticaria, unspecified (principal); I10 Essential (primary) hypertension; E11.9 Type 2 diabetes mellitus without complications; Z85.3 Personal history of malignant neoplasm of breast; Z88.6 Allergy status to analgesic agent; Z90.711 Acquired absence of uterus with remaining cervical stump
CPT/HCPCS: 82962; 96372; 99284; J0171; J8540

== ENCOUNTER 2016-11-11 18:05 | Emergency (ER) | payer MEDICARE, MEDICAID ==
[~2016-11-11] VITALS: Ht 154.9 cm; Wt 72.1 kg
[~2016-11-11 18:05] MED LIST changes: +BRINTELLIX10 MG PO; +PREDNISONE20 MG ORAL; +SIMVASTATIN20 MG ORAL; +TRAMADOL HCL50 MG ORAL; +TRIAMCINOLONE A15 GM TP; +VISTARIL25 M1 PO
--- NOTE | 2016-11-11 18:39 | Emergency Room Report ---
History of Present Illness General Chief Complaint: Skin Rash/Abscess Present Illness HPI 56 Yo Female presents to the ED c/O 11/28 in severity Burning and itching rash that consists of multiple insect bites, bilateral that was, hands and wrists x2 weeks. Patient states she was seen by corn grinder who prescribed antifungal topical and cortisone cream 6 days ago. Patient states she has not had any relief with use of these medications. Patient denies fevers or chills. Patient states she continues to have itching and burning pain in areas where lesions are. Patient states she has bites all over her body. Denies new medications, denies blisters, or sloughing of skin. Patient denies recent travel or ill contacts patient denies abdominal pain, nausea or vomiting. denies swelling of the lips, tongue or airway, denies SOB, wheezing or difficulty breathing. Denies CP, Palpitations, LOC, AMS, dizziness, Changes in Vision, Sensation, paresthesias, or a sudden severe headache. Allergies: Coded Allergies: MORPHINE (Verified Allergy, Unknown, 06/12/15) Patient History Past Medical History: see triage record, DM Past Surgical History: none Pertinent Family History: none Now: No Reviewed Nursing Documentation: PMH: Agreed, PSxH: Agreed Nursing Documentation-PMH Hx Cardiac Problems: Yes Hx Hypertension: Yes Hx Diabetes: Yes Hx Cancer: Yes - Left breast ("Cancer free") Hx Gastrointestinal Problems: No Hx Neurological Problems: No Review of Systems All Other Systems: negative except mentioned in HPI Physical Exam Vital Signs Date Time Temp Pulse Resp B/P Pulse Ox O2 Delivery O2 Flow Rate FiO2 11/11/16 18:17 98.4 86 20 122/67 100 Room Air Sp02 EP Interpretation: reviewed, normal General Appearance: well appearing, no apparent distress, alert, GCS 15, non- toxic Head: normocephalic, atraumatic Eyes: bilateral eye PERRL, bilateral eye normal inspection ENT: hearing grossly normal, normal pharynx, no angioedema, normal voice, moist mucus membranes, other - no oral lesions noted Neck: full range of motion, supple/symm/no masses Respiratory: lungs clear, normal breath sounds, no wheezing, speaking full sentences Cardiovascular #1: regular rate, rhythm, no edema Musculoskeletal: back normal, gait/station normal, normal range of motion, non- tender Neurologic: alert, oriented x3, responsive, motor strength/tone normal, sensory intact, normal gait, speech normal Psychiatric: judgement/insight normal, memory normal, mood/affect normal Skin: normal color, warm/dry, well hydrated, rash - multiple small erythematous papules that are discrete primarily on the dorsum of hands and wrist, and bilateral calfs and ankles, spares palms and soles, few on the torso. no increased temperture to palpation. no crusting or blisters, no oral lesions. Lymphatic: no adenopathy Medical Decision Making PA Attestation Dr. Rahman is my supervising Physician whom patient management has been discussed with. Diagnostic Impression: Primary Impression: Rash and other nonspecific skin eruption ER Course 56 Yo Female presents to the ED c/O 11/28 in severity Burning and itching rash that consists of multiple insect bites, bilateral that was, hands and wrists x2 weeks. Patient states she was seen by corn grinder who prescribed antifungal topical and cortisone cream 6 days ago. Patient states she has not had any relief with use of these medications. Patient denies fevers or chills. Patient states she continues to have itching and burning pain in areas where lesions are. Patient states she has bites all over her body. Denies new medications, denies blisters, or sloughing of skin. Patient denies recent travel or ill contacts patient denies abdominal pain, nausea or vomiting. denies swelling of the lips, tongue or airway, denies SOB, wheezing or difficulty breathing. Denies CP, Palpitations, LOC, AMS, dizziness, Changes in Vision, Sensation, paresthesias, or a sudden severe headache. Ddx considered but are not limited to cellulitis, scabies, insect bites, tic bites, spider bites, contact dermatitis, Drug reaction, allergic reaction, fungal infection, lice. Vital signs: are WNL, pt. is afebrile H&PE are most consistent with rash with localized reactions, over a generalized area. no evidence of secondary infection. suspicious for infestation ORDERS: none required at this time, the diagnosis is clinical ED INTERVENTIONS: None required at this time. - D/W pt. that will treat her symptoms as well as medication for possible infestation, suggested to pt. that she follow up with her corn grinder or at least contact them to let them know her prescribed medications did not help further evaluation may be necessary. d/w pt. that she is stable for outpatient follow up, however to return to ED with worsening or new symptoms. DISCHARGE: At this time pt. is stable for d/c to home. Will provide printed patient care instructions, and any necessary prescriptions. Care plan and follow up instructions have been discussed with the patient prior to discharge. Last Vital Signs Date Time Temp Pulse Resp B/P Pulse Ox O2 Delivery O2 Flow Rate FiO2 11/11/16 18:17 98.4 86 20 122/67 100 Room Air Disposition: HOME, SELF-CARE Condition: Stable Scripts Permethrin* (ELIMITE*) 60 Gm Cream..g. 1 APPLIC TOPIC ONCE, #60 GM 0 Refills Apply cream from head to toe; leave on for 8-14 hours before washing off with water; may reapply in 1 week if live mites appear. Prov: Babs Aldana 11/11/16 Hydroxyzine HCl (Hydroxyzine HCl) 25 Mg Tablet 25 MG ORAL FOUR TIMES A DAY, #30 TAB Prov: Babs Aldana 11/11/16 Patient Instructions: Rash Additional Instructions: Take medications as directed. Follow up with a [facility]IN [facility]KER or Primary Care Provider in 3-5 days, even if your symptoms have resolved. --Please review list of primary care clinics, if you do not already have a primary care provider Return sooner to ED if new symptoms occur, or current symptoms become worse. Do not drink alcohol, drive, or operate heavy machinery while taking Hydroxyzine as this may cause drowsiness. - Please note that this Emergency Department Report was dictated using [employer] mill[employer] technology software, occasionally this can lead to erroneous entry secondary to interpretation by the dictation equipment. Babs Aldana Nov 11, 2016 18:39
[2016-11-11] MEDS ORDERED: PERMETHRIN60 GM TOPIC (18:51)
[2016-11-11] MEDS ORDERED: ATARAX25 MG ORAL (18:51)
[2016-11-11 19:11] VITALS: BP 122/67
[2016-11-11 19:13] VITALS: BP 122/67
== END 2016-11-11 19:10 | disposition home or self-care (01) ==
LOC: EMR 18:55
DX: R21 Rash and other nonspecific skin eruption (principal); I10 Essential (primary) hypertension; E11.9 Type 2 diabetes mellitus without complications; Z85.3 Personal history of malignant neoplasm of breast
CPT/HCPCS: 99284

== ENCOUNTER 2016-12-26 10:19 | Emergency (ER) | payer MEDICARE, MEDICAID ==
[~2016-12-26] VITALS: Ht 154.9 cm; Wt 72.6 kg
[~2016-12-26 10:19] MED LIST changes: +ATARAX25 MG ORAL; +PERMETHRIN60 GM TOPIC
[2016-12-26] MEDS ORDERED: MELOXICAM15 MG PO (10:35)
[2016-12-26] MEDS ORDERED: [UNRECOGNIZED DRUG - OTHER] (10:35)
--- NOTE | 2016-12-26 11:09 | Emergency Room Report ---
History of Present Illness General Chief Complaint: Dizziness Source: Patient, Medical Record Present Illness HPI 56-year-old female history of hypertension diabetes presenting with one month of lightheadedness. Patient states that lightheadedness occurs intermittently throughout the whole month, but says that it is difficult for her to go to her doctor so she finally came today. Patient states mild intermittent blurry vision, mild nausea, and also a slight nonproductive cough. But denies any fever chills chest pain or shortness of breath. Denies any dysuria. He should has otherwise been able to ambulate on her own with her walker without any issue , and has been eating and drinking normally. Allergies: Coded Allergies: MORPHINE (Verified Allergy, Unknown, 06/12/15) Patient History Past Medical History: see triage record Past Surgical History: none Pertinent Family History: none Reviewed Nursing Documentation: PMH: Agreed, PSxH: Agreed Nursing Documentation-PMH Past Medical History: No History, Except For Hx Cardiac Problems: Yes Hx Hypertension: Yes Hx Diabetes: Yes Hx Cancer: Yes - Left breast ("Cancer free") Hx Gastrointestinal Problems: No Hx Neurological Problems: No Review of Systems All Other Systems: negative except mentioned in HPI Physical Exam Vital Signs Date Time Temp Pulse Resp B/P (MAP) Pulse Ox O2 Delivery O2 Flow Rate FiO2 12/26/16 10:26 97.5 94 18 133/63 99 Room Air Sp02 EP Interpretation: reviewed, normal General Appearance: normal inspection, well appearing, no apparent distress, alert, GCS 15, non-toxic Head: normocephalic, atraumatic Eyes: bilateral eye normal inspection, bilateral eye PERRL, bilateral eye EOMI ENT: normal ENT inspection, normal pharynx, normal voice, TMs + canals normal, moist mucus membranes Neck: normal inspection, full range of motion, supple Respiratory: normal inspection, lungs clear, normal breath sounds, no respiratory distress, no retraction, no wheezing, speaking full sentences, chest symmetrical Cardiovascular #1: normal inspection, regular rate, rhythm, no edema, normal capillary refill Cardiovascular #2: 2+ radial (R), 2+ radial (L) Gastrointestinal: normal inspection, non tender, soft, non-distended, no guarding Musculoskeletal: normal inspection, back normal, normal range of motion, non- tender Neurologic: normal inspection, alert, oriented x3, responsive, track inspecting supervisor III-XII nml as tested, motor strength/tone normal, sensory intact, normal gait, speech normal Psychiatric: normal inspection, judgement/insight normal, memory normal Skin: normal inspection, normal color, no rash, warm/dry, well hydrated, normal turgor Medical Decision Making Diagnostic Impression: Primary Impression: Lightheadedness ER Course 56 yo F with one month of lightheadedness, left ear pain, cough DDX: Chronic otitis media, electrolyte imbalance, dehydration, UTI, pneumonia, viral syndrome Plan: Obtain labs, ua, CXR, EKG ER course: Patient has remained stable during ED stay. Has remained nontoxic, has been conversing on phone with a friend, not in respiratory distress, not in pain. Disposition: Patient is to be discharged to home. Patient is instructed to followup with her primary care within 5 days, also told to see an ENT specialist if symptoms continue Strict return precautions discussed with patient such as fever, chills, worsening/severe pain, nausea, vomiting, which may indicate severe illness. Patient verbalizes understanding and agrees with plan. Please note that this Emergency Department Report was dictated using [employer] instructor technology software, occasionally this can lead to erroneous entry secondary to interpretation by the dictation equipment Laboratory Tests Test 12/26/16 11:10 White Blood Count 4.3 K/UL (4.8-10.8) L Red Blood Count 4.46 M/UL (4.20-5.40) Hemoglobin 13.5 G/DL (12.0-16.0) Hematocrit 42.0 % (37.0-47.0) Mean Corpuscular Volume 94 FL (80-99) Mean Corpuscular Hemoglobin 30.2 PG (27.0-31.0) Mean Corpuscular Hemoglobin Concent 32.1 G/DL (32.0-36.0) Red Cell Distribution Width 12.3 % (11.6-14.8) Platelet Count 193 K/UL (150-450) Mean Platelet Volume 9.7 FL (6.5-10.1) Neutrophils (%) (Auto) 65.6 % (45.0-75.0) Lymphocytes (%) (Auto) 27.3 % (20.0-45.0) Monocytes (%) (Auto) 5.2 % (1.0-10.0) Eosinophils (%) (Auto) 0.6 % (0.0-3.0) Basophils (%) (Auto) 1.3 % (0.0-2.0) Urine Color Pale yellow Urine Appearance Clear Urine pH 7 (4.5-8.0) Urine Specific [place] 1.005 (1.005-1.035) Urine Protein Negative (NEGATIVE) Urine Glucose (UA) 4+ (NEGATIVE) H Urine Ketones Negative (NEGATIVE) Urine Occult Blood Negative (NEGATIVE) Urine Nitrite Negative (NEGATIVE) Urine Bilirubin Negative (NEGATIVE) Urine Urobilinogen Normal MG/DL (0.0-1.0) Urine Leukocyte Esterase Negative (NEGATIVE) Urine RBC 0-2 /HPF (0 - 2) Urine WBC 2-4 /HPF (0 - 2) Urine Squamous Epithelial Cells Few /LPF (NONE/OCC) Urine Bacteria Few /HPF (NONE) Urine Yeast Few /HPF (NONE) H Sodium Level 141 mEQ/L (135-145) Potassium Level 3.6 mEQ/L (3.4-4.9) Chloride Level 108 mEQ/L (98-107) H Carbon Dioxide Level 22 mEQ/L (20-30) Anion Gap 11 (5-15) Blood Urea Nitrogen 17 mg/dL (7-23) Creatinine 1.3 mg/dL (0.5-0.9) H Estimate Glomerular Filtration Rate 51.1 mL/min (>60) Glucose Level 223 mg/dL (74-106) H Calcium Level 9.5 mg/dL (8.6-10.2) Total Bilirubin 0.3 mg/dL (0.0-1.2) Aspartate Amino Transferase (AST) 28 U/L (5-40) Alanine Aminotransferase (ALT) 78 U/L (3-33) H Alkaline Phosphatase 119 U/L (35-104) H Total Creatine Kinase 117 U/L (26-140) Creatine Kinase MB 2.6 ng/mL (< 3.8) Creatine Kinase MB Relative Index 2.2 Troponin I < 0.30 ng/mL (<=0.30) Total Protein 7.1 g/dL (6.6-8.7) Albumin 4.4 g/dL (3.5-5.2) Globulin 2.7 g/dL Albumin/Globulin Ratio 1.6 (1.0-2.7) EKG Diagnostic Results Rate: normal Rhythm: NSR ST Segments: no acute changes ASA given to the pt in ED: No Rhythm Strip Diag. Results EP Interpretation: yes Rate: 82 Rhythm: NSR, no PVC's, no ectopy Chest X-Ray Diagnostic Results Chest X-Ray Diagnostic Results : Chest X-Ray Ordered: Yes # of Views/Limited/Complete: 1 View Indication: Other EP Interpretation: Yes Interpretation: no consolidation, no effusion, no pneumothorax, no acute cardiopulmonary disease Impression: No acute disease Electronically Signed by: Electronically signed by Sumit Elizondo MD Last Vital Signs Date Time Temp Pulse Resp B/P (MAP) Pulse Ox O2 Delivery O2 Flow Rate FiO2 12/26/16 10:26 97.5 94 18 133/63 99 Room Air Sumit Elizondo M.D. Dec 26, 2016 11:09
[2016-12-26 11:20] VITALS: BP 108/61
[2016-12-26 11:32] LABS: APPEARANCE,URINE CLEAR; KETONES,URINE NEGATIVE (NEGATIVE); LEUKOCYTE ESTERASE ,URINE NEGATIVE (NEGATIVE); NITRITE,URINE NEGATIVE (NEGATIVE); PH,URINE 7 (4.5-8.0); PROTEIN,URINE NEGATIVE (NEGATIVE); UROBILINOGEN,URINE NORMAL MG/DL (0.0-1.0)
--- NOTE | 2016-12-26 11:35 | Diagnostic Imaging Report ---
Indication: SOB Technique: One view of the chest Comparison: 06/06/2016 Findings: Lungs and pleural spaces are clear. Heart size is normal. There are left axillary surgical clips again demonstrated. No significant interim change Impression: No acute process
[2016-12-26 11:37] LABS: BASOPHILS % (AUTO) 1.3 % (0.0-2.0); EOSINOPHILS % (AUTO) 0.6 % (0.0-3.0); LYMPHOCYTES % (AUTO) 27.3 % (20.0-45.0); MEAN CORPUSCULAR HEMOGLOBIN 30.2 PG (27.0-31.0); MEAN CORPUSCULAR HGB CONC 32.1 G/DL (32.0-36.0); MEAN CORPUSCULAR VOLUME 94 FL (80-99); MEAN PLATELET VOLUME 9.7 FL (6.5-10.1); MONOCYTES % (AUTO) 5.2 % (1.0-10.0); NEUTROPHILS % (AUTO) 65.6 % (45.0-75.0); PLATELET COUNT 193 K/UL (150-450); RED BLOOD COUNT 4.46 M/UL (4.20-5.40); RED CELL DISTRIBUTION WIDTH 12.3 % (11.6-14.8); WHITE BLOOD COUNT 4.3 K/UL (4.8-10.8)
[2016-12-26 11:50] LABS: ALBUMIN/GLOBULIN RATIO 1.6 (1.0-2.7); CALCIUM 9.5 mg/dL (8.6-10.2); CREATININE 1.3 mg/dL (0.5-0.9); GLOMERULAR FILTRATION RATE 51.1 mL/min (>60); POTASSIUM 3.6 mEQ/L (3.4-4.9); TOTAL PROTEIN 7.1 g/dL (6.6-8.7); TROPONIN I < 0.30 ng/mL (<=0.30)
[2016-12-26 12:01] LABS: CKMB 2.6 ng/mL (< 3.8)
[2016-12-26 12:04] LABS: RBC,URINE 0-2 /HPF (0 - 2)
[2016-12-26 12:05] LABS: BACTERIA,URINE FEW /HPF; SQUAMOUS EPITHELIAL CELL,UR FEW /LPF (NONE/OCC); YEAST,URINE FEW /HPF
[2016-12-26 12:30] VITALS: BP 110/56
[2016-12-26 13:16] VITALS: BP 120/60
== END 2016-12-26 13:17 | disposition home or self-care (01) ==
LOC: EMR 11:48
DX: R42 Dizziness and giddiness (principal); I10 Essential (primary) hypertension; E11.9 Type 2 diabetes mellitus without complications; Z85.3 Personal history of malignant neoplasm of breast; Z88.6 Allergy status to analgesic agent
CPT/HCPCS: 36415; 71010; 80053; 81001; 82550; 82553; 84484; 85025; 87086; 93005; 99284

== ENCOUNTER 2019-04-06 07:53 | Emergency (ER) | payer MEDICARE, MEDICAID ==
[~2019-04-06] VITALS: Ht 154.9 cm; Wt 77.1 kg
[~2019-04-06 07:53] MED LIST changes: +AMITRIPTYLINE25 MG ORAL; +DICLOFENAC SODI75 MG ORAL; +GABAPENTIN300 MG ORAL; +MELOXICAM15 MG PO; +TRIAMTERENE-HC1 EAC5 ORAL; +VENLAFAXINE HCL75 MG ORAL; +[UNRECOGNIZED DRUG - OTHER]
[2019-04-06 08:11] VITALS: BP 139/77
[2019-04-06] MEDS ORDERED: CYCLOBENZAPRINE10 MG ORAL (08:12)
[2019-04-06] MEDS ORDERED: GLIMEPIRIDE4 MG ORAL (08:12)
[2019-04-06] MEDS ORDERED: HYDROcodone/Acetamin 5/325 tab ORAL ONE (08:15)
[2019-04-06] MEDS ORDERED: IBUPROFEN600 MG ORAL (08:21)
--- NOTE | 2019-04-06 08:27 | Emergency Room Report ---
History of Present Illness General Chief Complaint: Pain Source: Patient, Medical Record Present Illness HPI 58-year-old female with history of hypertension, diabetes, breast cancer in remission comes to the ER with complaints of chronic left shoulder pain for over a year. She reports she has a known rotator cuff impingement syndrome, and is trying to get out of her current HMO so that she can be referred to a specialist, she reports she has a primary care doctor and has tried meloxicam, Flexeril, NSAIDs, with minimal to no relief. She reports that the pain has been worse over the past month, and that she has not tried any pain pills for other than those mentioned. She requests just a few days of pain pills to help her with her pain since she was unable to sleep last night. The pain is constant, severe, sharp, localized to the left shoulder, nonradiating, worse with movement, and patient denies any recent injuries, fevers, shortness of breath, chest pain, redness or warmth over the shoulder, any other complaints at all. Allergies: Coded Allergies: MORPHINE (Verified Allergy, Unknown, 06/12/15) Patient History Past Medical History: see triage record Reviewed Nursing Documentation: PMH: Agreed; PSxH: Agreed Nursing Documentation-PMH Past Medical History: No History, Except For Hx Cardiac Problems: Yes Hx Hypertension: Yes Hx Diabetes: Yes Hx Cancer: Yes - Left breast ("Cancer free") Hx Gastrointestinal Problems: No Hx Dialysis: No History Of Psychiatric Problem: No Hx Neurological Problems: No Review of Systems Constitutional: Denies: fever Eye: Denies: acuity changes Respiratory: Denies: cough, shortness of breath Cardiovascular: Denies: chest pain Gastrointestinal: Denies: nausea, vomiting Skin: Denies: rash Neurological: Denies: headache Physical Exam Vital Signs Date Time Temp Pulse Resp B/P (MAP) Pulse Ox O2 Delivery O2 Flow Rate FiO2 04/06/19 08:01 98.1 88 16 139/77 (97) 100 Room Air General Appearance: well appearing, no apparent distress Head: normocephalic, atraumatic ENT: hearing grossly normal, normal voice Neck: full range of motion, supple Respiratory: no respiratory distress, speaking full sentences Cardiovascular #1: normal peripheral pulses, no edema Cardiovascular #2: 2+ radial (R), 2+ radial (L) Gastrointestinal: non tender, soft Rectal: deferred Musculoskeletal: normal inspection, moves extm spontaneously, decreased range of mation - Left shoulder with pain limited range of motion but able to range 15 to 20 degrees of extension, flexion and abduction Neurologic: alert, motor strength/tone normal, sensory intact, normal gait Psychiatric: normal inspection, judgement/insight normal, memory normal, mood/ affect normal Skin: no rash Medical Decision Making Diagnostic Impression: Primary Impression: Pain ER Course I have reviewed the [employer] prescription drug monitoring database, and the most recent activity patient had was on November [id number], which was well over 4 months ago and she was given a 30-day supply of fentanyl transdermal system, and before that 1 month prior in September she was given 2 separate [place] prescriptions for a 10 and 15-day supply respectively. There have been no recent prescriptions in the past 4 months. Differential diagnosis includes malingering, drug-seeking behavior, rotator cuff impingement syndrome. Doubt fracture, dislocation, septic arthritis, also doubt atypical acute coronary syndrome, will discharge patient, given 1 dose of [place] here, will give 5 tablets of [place] 5/325 and Motrin 600 mg upon discharge. Last Vital Signs Date Time Temp Pulse Resp B/P (MAP) Pulse Ox O2 Delivery O2 Flow Rate FiO2 04/06/19 08:11 98.1 16 139/77 100 Room Air 04/06/19 08:01 88 Disposition: HOME, SELF-CARE Condition: Stable Scripts Ibuprofen* (MOTRIN*) 600 Mg Tablet 600 MG ORAL Q8H PRN for For Pain, #15 TAB 0 Refills Prov: GUSTAVO STEWART M.D 04/06/19 Patient Instructions: Rotator Cuff Tendinitis GUSTAVO STEWART M.D Apr 06, 2019 08:27
[2019-04-06] MEDS ORDERED: NORCO 5-325 TA1 EACH ORAL (08:29)
== END 2019-04-06 08:40 | disposition home or self-care (01) ==
LOC: EMR 08:30
DX: M25.512 Pain in left shoulder (principal); M75.42 Impingement syndrome of left shoulder; I10 Essential (primary) hypertension; E11.9 Type 2 diabetes mellitus without complications; Z85.3 Personal history of malignant neoplasm of breast; Z88.6 Allergy status to analgesic agent
CPT/HCPCS: 99282

== ENCOUNTER 2019-06-04 18:37 | Emergency (ER) | payer MEDICARE, MEDICAID ==
[~2019-06-04] VITALS: Ht 157.5 cm; Wt 77.1 kg
[~2019-06-04 18:37] MED LIST changes: +CYCLOBENZAPRINE10 MG ORAL; +IBUPROFEN600 MG ORAL; +LEVAQUIN500 MG ORAL; +NORCO 5-325 TA1 EACH ORAL
[2019-06-04 19:14] VITALS: BP 144/81
--- NOTE | 2019-06-04 19:16 | NUR ---
ED Nurse Note: Patient walked in to ER c/o numbness on the face and bilateral hands and feet since morning and feeling weak. Stated went to [facility], they sent her here to do upper and lower extremeties doppler. Patient presented anxious, saying something wrong with me, AAO x4, VSS at this time.
[2019-06-04 20:23] LABS: EOSINOPHILS % (AUTO) 0.8 % (0.0-3.0); HEMATOCRIT 39.9 % (37.0-47.0); HEMOGLOBIN 12.9 G/DL (12.0-16.0); LYMPHOCYTES % (AUTO) 36.6 % (20.0-45.0); MEAN CORPUSCULAR VOLUME 94 FL (80-99); MONOCYTES % (AUTO) 7.3 % (1.0-10.0); NEUTROPHILS % (AUTO) 53.4 % (45.0-75.0); PLATELET COUNT 204 K/UL (150-450); RED BLOOD COUNT 4.25 M/UL (4.20-5.40); RED CELL DISTRIBUTION WIDTH 12.7 % (11.6-14.8); WHITE BLOOD COUNT 5.4 K/UL (4.8-10.8)
[2019-06-04 20:32] LABS: APPEARANCE,URINE SLIGHTLY CLOUDY; BILIRUBIN, URINE NEGATIVE (NEGATIVE); GLUCOSE, URINE (UA) 3+ (NEGATIVE); KETONES,URINE 1+ (NEGATIVE); LEUKOCYTE ESTERASE ,URINE 1+ (NEGATIVE); NITRITE,URINE NEGATIVE (NEGATIVE); PH,URINE 5 (4.5-8.0); PROTEIN,URINE 2+ (NEGATIVE); UROBILINOGEN,URINE NORMAL MG/DL (0.0-1.0)
[2019-06-04 20:38] LABS: ANION GAP 14 mmol/L (5-15); BLOOD UREA NITROGEN 23 mg/dL (7-18); CALCIUM 9.3 MG/DL (8.5-10.1); CARBON DIOXIDE 20 MMOL/L (21-32); CHLORIDE 111 MMOL/L (98-107); CREATININE 1.4 MG/DL (0.55-1.30); POTASSIUM 3.6 MMOL/L (3.5-5.1); SODIUM 145 MMOL/L (136-145)
[2019-06-04 20:39] LABS: COLOR,URINE YELLOW
[2019-06-04 20:51] LABS: ALANINE AMINOTRANSFERASE 43 U/L (12-78); ALBUMIN 4.2 G/DL (3.4-5.0); ALBUMIN/GLOBULIN RATIO 1.4 (1.0-2.7); ALKALINE PHOSPHATASE 125 U/L (46-116); ASPARTATE AMINO TRANSFERASE 17 U/L (15-37); BILIRUBIN,TOTAL 0.2 MG/DL (0.2-1.0); CREATINE KINASE 137 U/L (26-308)
[2019-06-04] MEDS ORDERED: Acetaminophen 500mg (ES) tab ORAL ONE (21:00)
--- NOTE | 2019-06-04 21:23 | NUR ---
ED Nurse Note: Patient was taken for CT
--- NOTE | 2019-06-04 21:44 | Diagnostic Imaging Report ---
EXAM: CT Head Without Intravenous Contrast CLINICAL HISTORY: WEAK TECHNIQUE: Axial computed tomography images of the head/brain without intravenous contrast. CTDI is 53 mGy and DLP is 1046 mGy-cm. One or more of the following dose reduction techniques were used: automated exposure control, adjustment of the mA and/or kV according to patient size, use of iterative reconstruction technique. COMPARISON: 04/29/19 FINDINGS: Brain: Unremarkable. No hemorrhage. No significant white matter disease. No edema. Ventricles: Unremarkable. No ventriculomegaly. Bones/joints: Unremarkable. No acute fracture. Soft tissues: Unremarkable. Sinuses: Unremarkable as visualized. No acute sinusitis. Mastoid air cells: Unremarkable as visualized. No mastoid effusion. Other findings: Motion degraded study. IMPRESSION: No acute intracranial abnormality identified on a Motion degraded study.
--- NOTE | 2019-06-04 21:59 | Emergency Room Report ---
History of Present Illness General Chief Complaint: Pain Source: Patient Present Illness HPI Disclaimer: Please note that this report is being documented using [employer] technology. This can lead to erroneous entry secondary to incorrect interpretation by the dictating instrument. HPI: 58-year-old female history of hypertension, hyperlipidemia and diabetes presents for evaluation of myalgias and numbness. Symptoms have been present for approximately 1 month. She notes some numbness and tingling as well as pain in the fingers as well as the toes. Denies any changes in strength or coordination. She is able to bear weight and ambulate. No reported trauma. She also complains of some tingling and numbness around her mouth on both sides. Denies facial droop, changes in her vision, headaches. Denies any swelling, skin changes such as erythema or warmth, breakdown or rash. Denies any recent fevers or chills. She does note some fatigue recently. Denies any chest pain, palpitations, nausea, vomiting, diarrhea. Denies dysuria or hematuria. She was referred to outpatient imaging for vascular studies to evaluate for claudication. She came to the emergency department instead. PMH: Hypertension, hyperlipidemia, diabetes PSH: Reviewed Allergies: Morphine Social Hx: Denies Allergies: Coded Allergies: MORPHINE (Verified Allergy, Unknown, 06/12/15) Nursing Documentation-PMH Hx Cardiac Problems: No - HIGH CHOLESTROL Hx Hypertension: Yes Hx Pacemaker: No Hx Asthma: No Hx COPD: No Hx Diabetes: Yes Hx Cancer: Yes - Left breast ("Cancer free") Hx Gastrointestinal Problems: No Hx Dialysis: No History Of Psychiatric Problem: No Hx Neurological Problems: No Hx Cerebrovascular Accident: No Hx Seizures: No Review of Systems All Other Systems: negative except mentioned in HPI Physical Exam Vital Signs Date Time Temp Pulse Resp B/P (MAP) Pulse Ox O2 Delivery O2 Flow Rate FiO2 06/04/19 18:56 97.5 80 14 144/81 (102) 97 Room Air General: Awake and alert, no acute distress HEENT: NC/AT. EOMI. PERRLA. Visual coates are full. No nystagmus. Facial expressions are symmetrical. No facial droop. Cardiovascular: RRR. S1 and S2 normal. No murmur appreciated Resp: Normal work of breathing. No cough, wheezing or crackles appreciated Abdomen: Abdomen is soft, nondistended. Nontender Skin: Intact. No abrasions, laceration or rash over the exposed skin MSK: Normal tone and bulk. Moving all extremities. No obvious deformity. There is no drift in the upper or lower extremities bilaterally. There is some tenderness to palpation over the feet and over the hands without obvious deformity. Full range of motion. 2+ radial pulses. 2+ PT and DP pulses. Capillary refill is brisk. Neuro: Awake and alert. Mentating appropriately. Facial expression symmetrical. No dysarthria, no ataxia on [id number] or [id number] testing. Sensation to light touch is intact over the upper and lower extremities. The patient has intact speech with good repetition, comprehension. Fund of knowledge is full. No aphasia, no neglect. NIH: 0 Medical Decision Making Diagnostic Impression: Primary Impression: Yeast infection Additional Impression: UTI (urinary tract infection) ER Course 58-year-old female presents for evaluation of 1 month numbness/tingling in the hands and feet, aching hands and feet, perioral numbness and tingling without facial droop. Differential includes was not limited to diabetic neuropathy, claudication, DVT, electrolyte abnormality, vitamin deficiency, remote CVA. Currently she is asymptomatic aside from the tenderness in the hands and feet. She has brisk pulses and capillary refill in both the upper and lower extremities. Lower extremities are soft and nontender, no asymmetry appreciated. Clinically she has no signs of DVT though will obtain a d-dimer to further evaluate. Will also start a cardiology and infectious work-up and get a CT scan of the head though clinically have low suspicion for intracranial process. She is outside the window for any acute intervention of possible stroke. Laboratory Tests Test 06/04/19 19:55 White Blood Count 5.4 K/UL (4.8-10.8) Red Blood Count 4.25 M/UL (4.20-5.40) Hemoglobin 12.9 G/DL (12.0-16.0) Hematocrit 39.9 % (37.0-47.0) Mean Corpuscular Volume 94 FL (80-99) Mean Corpuscular Hemoglobin 30.3 PG (27.0-31.0) Mean Corpuscular Hemoglobin Concent 32.3 G/DL (32.0-36.0) Red Cell Distribution Width 12.7 % (11.6-14.8) Platelet Count 204 K/UL (150-450) Mean Platelet Volume 8.1 FL (6.5-10.1) Neutrophils (%) (Auto) 53.4 % (45.0-75.0) Lymphocytes (%) (Auto) 36.6 % (20.0-45.0) Monocytes (%) (Auto) 7.3 % (1.0-10.0) Eosinophils (%) (Auto) 0.8 % (0.0-3.0) Basophils (%) (Auto) 2.0 % (0.0-2.0) D-Dimer 0.23 mg/L FEU (0.00-0.49) Urine Color Yellow Urine Appearance Slightly cloudy Urine pH 5 (4.5-8.0) Urine Specific [place] 1.020 (1.005-1.035) Urine Protein 2+ (NEGATIVE) H Urine Glucose (UA) 3+ (NEGATIVE) H Urine Ketones 1+ (NEGATIVE) H Urine Blood Negative (NEGATIVE) Urine Nitrite Negative (NEGATIVE) Urine Bilirubin Negative (NEGATIVE) Urine Urobilinogen Normal MG/DL (0.0-1.0) Urine Leukocyte Esterase 1+ (NEGATIVE) H Urine RBC 0-2 /HPF (0 - 2) Urine WBC 2-4 /HPF (0 - 2) Urine Squamous Epithelial Cells Few /LPF (NONE/OCC) Urine Bacteria Many /HPF (NONE) H Urine Yeast Many /HPF (NONE) H Sodium Level 145 MMOL/L (136-145) Potassium Level 3.6 MMOL/L (3.5-5.1) Chloride Level 111 MMOL/L (98-107) H Carbon Dioxide Level 20 MMOL/L (21-32) L Anion Gap 14 mmol/L (5-15) Blood Urea Nitrogen 23 mg/dL (7-18) H Creatinine 1.4 MG/DL (0.55-1.30) H Estimate Glomerular Filtration Rate 46.7 mL/min (>60) Glucose Level 87 MG/DL (74-106) Calcium Level 9.3 MG/DL (8.5-10.1) Total Bilirubin 0.2 MG/DL (0.2-1.0) Aspartate Amino Transferase (AST) 17 U/L (15-37) Alanine Aminotransferase (ALT) 43 U/L (12-78) Alkaline Phosphatase 125 U/L (46-116) H Total Creatine Kinase 137 U/L (26-308) Troponin I 0.000 ng/mL (0.000-0.056) Total Protein 7.3 G/DL (6.4-8.2) Albumin 4.2 G/DL (3.4-5.0) Globulin 3.1 g/dL Albumin/Globulin Ratio 1.4 (1.0-2.7) Vitamin B12 Level > 2000 PG/ML (193-986) H Thyroid Stimulating Hormone (TSH) 0.915 uiU/mL (0.358-3.740) CT/MRI/US Diagnostic Results CT/MRI/US Diagnostic Results : Impression Final Report EXAM: CT Head Without Intravenous Contrast CLINICAL HISTORY: WEAK TECHNIQUE: Axial computed tomography images of the head/brain without intravenous contrast. CTDI is 53 mGy and DLP is 1046 mGy-cm. One or more of the following dose reduction techniques were used: automated exposure control, adjustment of the mA and/or kV according to patient size, use of iterative reconstruction technique. COMPARISON: 04/29/19 FINDINGS: Brain: Unremarkable. No hemorrhage. No significant white matter disease. No edema. Ventricles: Unremarkable. No ventriculomegaly. Bones/joints: Unremarkable. No acute fracture. Soft tissues: Unremarkable. Sinuses: Unremarkable as visualized. No acute sinusitis. Mastoid air cells: Unremarkable as visualized. No mastoid effusion. Other findings: Motion degraded study. IMPRESSION: No acute intracranial abnormality identified on a Motion degraded study. Radiologist: Rommel Pendleton MD Electronically Signed: 06/04/19 21:43 Study ready at 21:35 and initial results transmitted at 21:43 Reevaluation Time: 21:57 Last Vital Signs Date Time Temp Pulse Resp B/P (MAP) Pulse Ox O2 Delivery O2 Flow Rate FiO2 06/04/19 21:31 97.5 06/04/19 19:14 14 144/81 97 Room Air 06/04/19 18:56 80 Reevaluation Impression D-dimer and troponin unremarkable. Labs show no significant electrolyte abnormalities, vitamin B12 is high. Urinalysis concerning for urinary tract infection and yeast infection. States she has had yeast infections and UTIs in the past. Denies any recent discharge or dysuria. Will treat with Diflucan and ceftriaxone in the ED and discharged with Keflex and an additional dose of Diflucan to be taken in [address] scan of the head does not show evidence of acute infarct. Believe her symptoms of hand and foot pain are consistent with diabetic neuropathy though I did encourage her to complete the vascular studies ordered by her PMD on an outpatient basis. Do not believe he requires further treatment or hospitalization at this time. She is stable for outpatient follow- up. We discussed reasons to return to the emergency department. She understands and agrees with this treatment plan. Disposition: HOME, SELF-CARE Condition: Stable Scripts Fluconazole (FLUCONAZOLE) 150 Mg Tablet 150 MG ORAL ONCE, #1 TAB Prov: Harris Tomas MD 06/04/19 Cephalexin* (KEFLEX*) 500 Mg Capsule 500 MG ORAL EVERY 12 HOURS, #14 CAP 0 Refills Prov: Harris Tomas MD 06/04/19 Referrals: NON PHYSICIAN (PCP) Harris Tomas MD Jun 04, 2019 21:59
[2019-06-04] MEDS ORDERED: Fluconazole 150mg tab ORAL ONE (22:00)
[2019-06-04] MEDS ORDERED: cefTRIAXone 1 GM in NS 55 ML IVPB ONE (22:00)
[2019-06-04] MEDS ORDERED: CEPHALEXIN500 MG ORAL (22:36)
[2019-06-04] MEDS ORDERED: FLUCONAZOLE150 MG ORAL (22:36)
[2019-06-04 22:45] VITALS: BP 144/81
--- NOTE | 2019-06-04 22:46 | NUR ---
ER DISCHARGE NOTE: Patient is cleared to be discharged per ERMD, pt is aox4, on room air, with stable vital signs. pt was given dc and prescription instructions, pt was able to verbalize understanding, pt id band and iv site removed without complications. pt is able to ambulate with steady gait. pt took all belongings.
== END 2019-06-04 22:45 | disposition home or self-care (01) ==
LOC: EMR 19:15
DX: B37.9 Candidiasis, unspecified (principal); N39.0 Urinary tract infection, site not specified; E78.5 Hyperlipidemia, unspecified; I10 Essential (primary) hypertension; Z88.6 Allergy status to analgesic agent; E78.00 Pure hypercholesterolemia, unspecified; Z85.3 Personal history of malignant neoplasm of breast; E11.9 Type 2 diabetes mellitus without complications
CPT/HCPCS: 36415; 70450; 80053; 81003; 82550; 82607; 84443; 84484; 85025; 85379; 87086; 87181; 96365; 99284; J0696

== ENCOUNTER 2019-07-07 12:42 | Emergency (ER) | payer MEDICARE, MEDICAID ==
[~2019-07-07] VITALS: Ht 157.5 cm; Wt 72.6 kg
[~2019-07-07 12:42] MED LIST changes: +CEPHALEXIN500 MG ORAL; +FLUCONAZOLE150 MG ORAL
--- NOTE | 2019-07-07 13:17 | NUR ---
ED Nurse Note: Pt walked into ED for bladder pain 10/10 for 1 week. Pt states pain radiates to back. Pt also feels dizzy. Pt has hx of cancer and DM. Pt denies other vaginal discharge, numbness, N&V. Pt is alert and orientedx4, ambulatory.
[2019-07-07 13:19] VITALS: BP 126/76
[2019-07-07 13:50] LABS: APPEARANCE,URINE CLEAR; BILIRUBIN, URINE NEGATIVE (NEGATIVE); COLOR,URINE PALE YELLOW; GLUCOSE, URINE (UA) 4+ (NEGATIVE); KETONES,URINE NEGATIVE (NEGATIVE); LEUKOCYTE ESTERASE ,URINE 1+ (NEGATIVE); NITRITE,URINE NEGATIVE (NEGATIVE); PH,URINE 5 (4.5-8.0); PROTEIN,URINE 1+ (NEGATIVE); UROBILINOGEN,URINE NORMAL MG/DL (0.0-1.0)
--- NOTE | 2019-07-07 14:04 | Emergency Room Report ---
History of Present Illness General Chief Complaint: Female Urogenital Problems Present Illness HPI 58-year-old female with history of recurrent UTI here complaining of 3 days of dysuria and urinary frequency. Denies any fever and chills, flank pain, nausea vomiting. Reports that has not yet seen a specialist for it. Denies any vaginal discharge at this time. Denies being sexually active. Sitting comfortably with stable vital signs. COVID-19 risk:Travel to affect: No Has patient experienced amaral: No Allergies: Coded Allergies: MORPHINE (Verified Allergy, Unknown, 06/12/15) Patient History Past Medical History: see triage record Past Surgical History: none Pertinent Family History: none Now: No Immunizations: UTD Reviewed Nursing Documentation: PMH: Agreed; PSxH: Agreed Nursing Documentation-PMH Hx Cardiac Problems: No - HIGH CHOLESTROL Hx Hypertension: Yes Hx Pacemaker: No Hx Asthma: No Hx COPD: No Hx Diabetes: Yes Hx Cancer: Yes - Left breast ("Cancer free") Hx Gastrointestinal Problems: No Hx Dialysis: No Hx Neurological Problems: No Hx Cerebrovascular Accident: No Hx Seizures: No Review of Systems All Other Systems: negative except mentioned in HPI Physical Exam Vital Signs Date Time Temp Pulse Resp B/P (MAP) Pulse Ox O2 Delivery O2 Flow Rate FiO2 07/07/19 12:56 98.4 106 18 122/70 (87) 98 Room Air Sp02 EP Interpretation: reviewed, normal General Appearance: no apparent distress, alert, GCS 15, non-toxic Head: normocephalic, atraumatic Eyes: bilateral eye normal inspection, bilateral eye PERRL ENT: hearing grossly normal, normal pharynx, no angioedema, normal voice Neck: full range of motion, supple/symm/no masses Respiratory: chest non-tender, lungs clear, normal breath sounds, no rhonchi, speaking full sentences Cardiovascular #1: regular rate, rhythm, no edema Gastrointestinal: normal bowel sounds, non tender, soft, non-distended, no guarding, no rebound Rectal: deferred Genitourinary: no CVA tenderness Musculoskeletal: back normal Neurologic: alert, motor strength/tone normal, oriented x3, sensory intact, responsive, speech normal Psychiatric: judgement/insight normal, memory normal, mood/affect normal, no suicidal/homicidal ideation Skin: no rash Lymphatic: no adenopathy Medical Decision Making PA Attestation All my diagnosis and treatment plans were reviewed ad discussed with my supervising physician Dr. Rahman Diagnostic Impression: Primary Impression: UTI (urinary tract infection) Additional Impression: Yeast infection ER Course 58-year-old female with history of recurrent UTI here complaining of 3 days of dysuria and urinary frequency. Denies any fever and chills, flank pain, nausea vomiting. Reports that has not yet seen a specialist for it. Denies any vaginal discharge at this time. Denies being sexually active. Sitting comfortably with stable vital signs. Ddx considered but are not limited to: UTI, pyelonephritis, urinary incontinence , prolapsed bladder Vital signs: are WNL, pt. is afebrile H&PE are most consistent with: UTI and incidental finding of yeast infection ORDERS: UA, urine cx, Diflucan, Keflex, Pyridium ED INTERVENTIONS: None required at this time. DISCHARGE: At this time pt. is stable for d/c to home. Will provide printed patient care instructions, and any necessary prescriptions. Care plan and follow up instructions have been discussed with the patient prior to discharge. See primary doctor for referral to urologist, take medication as directed, increase oral hydration, if worsening symptoms return to the emergency room Last Vital Signs Date Time Temp Pulse Resp B/P (MAP) Pulse Ox O2 Delivery O2 Flow Rate FiO2 07/07/19 13:19 98.4 65 20 126/76 97 Room Air Disposition: HOME, SELF-CARE Condition: Stable Scripts Fluconazole (FLUCONAZOLE) 100 Mg Tablet 150 MG ORAL DAILY for 1 Day, #2 TAB 0 Refills Prov: Jennifer Carter 07/07/19 Phenazopyridine Hcl* (PYRIDIUM*) 200 Mg Tablet 200 MG ORAL THREE TIMES A DAY for 2 Days, #6 TAB 0 Refills Prov: Jennifer Carter 07/07/19 Cephalexin* (KEFLEX*) 500 Mg Capsule 500 MG ORAL EVERY 6 HOURS for 7 Days, #28 CAP Prov: Jennifer Carter 07/07/19 Patient Instructions: Urinary Tract Infection Additional Instructions: Take medication as directed, increase oral hydration, follow-up with your specialist, if worsening symptoms return to the emergency room Jennifer Carter Jul 07, 2019 14:04
[2019-07-07] MEDS ORDERED: PHENAZOPYRIDIN200 MG ORAL (14:05)
[2019-07-07] MEDS ORDERED: CEPHALEXIN500 MG ORAL (14:05)
[2019-07-07] MEDS ORDERED: FLUCONAZOLE100 MG ORAL (14:15)
[2019-07-07 14:23] VITALS: BP 123/75
--- NOTE | 2019-07-07 14:23 | NUR ---
ER DISCHARGE NOTE: Patient is cleared to be discharged per ERMD, pt is aox4, on room air, with stable vital signs. pt was given dc and prescription instructions, pt was able to verbalize understanding, pt id band removed. pt is able to ambulate with steady gait. pt took all belongings. Pt given 3 prescirptions.
== END 2019-07-07 14:23 | disposition home or self-care (01) ==
LOC: EMR 14:01
DX: N39.0 Urinary tract infection, site not specified (principal); B37.9 Candidiasis, unspecified; E78.00 Pure hypercholesterolemia, unspecified; I10 Essential (primary) hypertension; Z85.3 Personal history of malignant neoplasm of breast; Z88.6 Allergy status to analgesic agent
CPT/HCPCS: 81003; 87086; 99283